=== PATIENT | male | born 1955 | race Caucasian/White ===

== ENCOUNTER 2016-06-25 11:29 | Day surgery (SDC) | payer MEDICARE, MEDICAID ==
[~2016-06-25] VITALS: Ht 190.5 cm; Wt 117.9 kg
[~2016-06-25 11:29] MED LIST: ALLO100 PO; CARD180C5 PO; CARV12.5 PO; CELE20TA PO; COUM1TAB PO; DIFL100T PO; FURO1TAB60 PO; LISI10TA3 PO; MELO-1 PO; METO100T PO; NITR0.4S SL; QUET1TAB7 PO; SERO100T PO
[2016-06-25 12:30] VITALS: BP 161/105; RESP 18; TEMP 98.2
[2016-06-25] MEDS ORDERED: DO NOT GIVE AM GLUCOPHAGE, GLUCOPHAGE XR, GLIPIZIDE, GLYBURIDE OR AVANDAMET XX PRN (12:30)
[2016-06-25] MEDS ORDERED: SODIUM BICARBONATE IV SCH ×2 (12:30)
[2016-06-25] MEDS ORDERED: SODIUM CHLOR 0.9% 1000 ML INJ 1,000 ML IV SCH (12:30)
[2016-06-25] MEDS ORDERED: DEXTROSE 5% IV SCH ×2 (12:30)
[2016-06-25] MEDS ORDERED: WATE IV SCH ×2 (12:30)
[2016-06-25 12:37] LABS: AUTOMATED NEUTROPHIL # 5.9 TH/MM3 (1.8-7.7); BASOPHIL % 0.4 % (0.0-2.0); EOSINOPHIL # 0.3 TH/MM3 (0-0.4); EOSINOPHIL % 3.6 % (0.0-4.0); HEMATOCRIT 32.6 % (39.0-51.0); MEAN CELL VOLUME 88.6 FL (80.0-100.0); MEAN CORPUSCULAR HGB CONC 33.9 % (32.0-36.0); MONO % 12.5 % (0.0-8.0); NEUT % 71.5 % (16.0-70.0); PLATELET COUNT 117 TH/MM3 (150-450); RED BLOOD COUNT 3.68 MIL/MM3 (4.50-5.90); RED CELL DISTRIBUTION WIDTH 25.2 % (11.6-17.2); WHITE BLOOD COUNT 8.2 TH/MM3 (4.0-11.0)
[2016-06-25 12:40] LABS: HEMO FLAGS AUTO DIFF
[2016-06-25 12:48] LABS: APTT (PATIENT) 34.1 SEC (24.3-30.1); INTERNATIONAL NORMALIZED RATIO 1.3 RATIO
[2016-06-25 12:52] LABS: BICARBONATE 25.7 MEQ/L (21.0-32.0); POTASSIUM 5.4 MEQ/L (3.5-5.1)
[2016-06-25 13:09] LABS: OVALOCYTES 1+ (NORMAL); PLATELET ESTIMATE SMEAR LOW (NORMAL); PLATELET MORPHOLOGY NORMAL (NORMAL); SCAN/DIFF AUTO DIFF CONFIRMED; TEARDROP RBCS 1+ (NORMAL)
[2016-06-25 13:10] LABS: KERATOCYTES OCC (NORMAL)
[2016-06-25] MEDS ORDERED: IOHEXOL 350 MG/ML 50 ML BTL (for Cath Lab) OTHER ONE (15:05)
[2016-06-25] MEDS ORDERED: MIDAZOLAM HCL 5 MG/5 ML VIAL ONE (15:20)
[2016-06-25] MEDS ORDERED: HEPARIN-NS/PF INJ 500 ML ONE (15:20)
[2016-06-25] MEDS ORDERED: HEPARIN SODIUM - IV 10,000 UNITS/10 ML VIAL ONE (15:20)
[2016-06-25] MEDS ORDERED: METOCLOPRAMIDE HCL 10 MG/2 ML VIAL IVS PRN (16:30)
[2016-06-25] MEDS ORDERED: oxyCODONE/ACETAMINOPHEN 5 MG/325 MG TAB PO PRN ×2 (16:30)
[2016-06-25] MEDS ORDERED: LIDOCAINE HCL 1% 50 ML VIAL INFIL PRN (16:30)
[2016-06-25] MEDS ORDERED: ENALAPRILAT 1.25 MG/ML VIAL IV PRN (16:30)
[2016-06-25] MEDS ORDERED: LORazepam 2 MG/ML VIAL IVP PRN (16:30)
[2016-06-25] MEDS ORDERED: SODIUM NITROPRUSSIDE 50 MG/250 ML D5W IV SCH ×2 (16:30)
[2016-06-25] MEDS ORDERED: cloNIDine HCL 0.1 MG TAB PO PRN (16:30)
[2016-06-25] MEDS ORDERED: HOLD GLUCOPHAGE, GLUCOPHAGE XR, AND AVANDAMET XX PRN (16:30)
[2016-06-25] MEDS ORDERED: POTASSIUM CHLORIDE 20 MEQ CONTROLLED RELEASE TAB PO PRN (16:30)
[2016-06-25] MEDS ORDERED: ATROPINE SULFATE 1 MG/ML VIAL IV PUSH PRN (16:30)
[2016-06-25] MEDS ORDERED: LABETALOL HCL 100 MG/20 ML VIAL IVP PRN (16:30)
[2016-06-25] MEDS ORDERED: ONDANSETRON HCL 4 MG/2 ML VIAL IV PRN (16:30)
[2016-06-25] MEDS ORDERED: SODIUM CHLOR 0.9% 250 ML IV PRN (16:30)
[2016-06-25] MEDS ORDERED: DILTIAZEM-CD 180 MG CAP ER PO STA (16:52)
--- NOTE | 2016-06-26 08:15 | MA ---
cc: [facility] DATE: 06/25/2016 PREOPERATIVE DIAGNOSIS End-stage renal disease. POSTOPERATIVE DIAGNOSIS End-stage renal disease PROCEDURE Left upper extremity fistulogram. ANESTHESIA Moderate sedation with approximately 3 cc of 1% lidocaine. DETAILS OF PROCEDURE The patient's left upper extremity was prepped and draped in a sterile fashion. I got access to the left cephalic vein using duplex ultrasound. The patient had a high BMI so we used ultrasound to help guide the needle in the appropriate location, although there was a thrill noted underneath the skin just above the antecubital fossa. I used a 21-gauge needle over a non-stranded wire and exchanged for a 4-Romanian micropuncture catheter. Then I shot a fistulogram. My findings were that the inflow arterial venous anastomosis was widely patent. The outflow cephalic vein was patent with no significant stenosis. There were some large collaterals. One was particularly large just a few centimeters after the takeoff of my anastomosis, appeared to be stealing some blood flow from the AV fistula. The axilla and subclavian veins as well as the left innominate were widely patent. At the end of the procedure we removed the catheter from the left arm and applied pressure over the catheter site. The patient tolerated the procedure well. DO NEEMA Vaz/VIVIANE /4:00 PM /7:[address] [facility]
[2016-06-26] MEDS ORDERED: DILTIAZEM-CD 180 MG CAP ER PO SCH (09:00)
[2016-06-26] MEDS ORDERED: ASPIRIN EC 81 MG TABEC PO SCH (09:00)
== END 2016-06-25 17:16 | disposition home or self-care (01) ==
LOC: HDOC 11:29 → HDIC 11:30 → HDOC 17:16
PROVIDERS: ATTEND Surgery
DX: I13.2 Hypertensive heart and chronic kidney disease with heart failure and with stage 5 chronic kidney disease, or end stage renal disease (principal); N18.5 Chronic kidney disease, stage 5; I50.9 Heart failure, unspecified
CPT/HCPCS: 75820; 80048; 85025; 85610; 85730; J1644; J2250; J3010; Q9967

== ENCOUNTER 2016-07-02 07:42 | Day surgery (SDC) | payer MEDICARE, MEDICAID ==
[~2016-07-02] VITALS: Ht 190.5 cm; Wt 120.0 kg
[~2016-07-02 07:42] MED LIST changes: +BUPIVACAINE/EPINEPHRINE 0.25% PF 10 ML VIAL ONE; +GELFOAM SIZE 100 ONE; +HEPARIN SODIUM - IV 10,000 UNITS/10 ML VIAL ONE; +HEPARIN SODIUM - SQ 10,000 UNITS/ML VIAL ONE; -MELO-1 PO; -METO100T PO; -NITR0.4S SL; +PROTAMINE SULFATE 50 MG/5 ML VIAL ONE; -QUET1TAB7 PO; -SERO100T PO; +THROMBIN (TOPICAL) 5,000 UNIT VIAL ONE; +VANCOMYCIN HCL 1000 MG VIAL ONE
[2016-07-02] MEDS ORDERED: METOPROLOL TARTRATE 25 MG TAB PO PRN (09:30)
[2016-07-02] MEDS ORDERED: LACTATED RINGER'S 1000 ML IV SCH (09:30)
[2016-07-02] MEDS ORDERED: INSULIN HUMAN REGULAR 1,000 UNITS/10 ML VIAL SQ PRN (09:30)
[2016-07-02] MEDS ORDERED: SODIUM CHLORID 0.9% 500 ML IV SCH (09:30)
[2016-07-02] MEDS ORDERED: COLA100C3 PO (10:03)
[2016-07-02] MEDS ORDERED: MAGN1TAB14 PO (10:03)
[2016-07-02] MEDS ORDERED: RENATAB5 PO (10:03)
[2016-07-02] MEDS ORDERED: NITR1SUB3 SL (10:03)
[2016-07-02] MEDS ORDERED: WARF-58 PO (10:03)
[2016-07-02] MEDS ORDERED: TRAM50TA PO (10:03)
[2016-07-02] MEDS ORDERED: SERO100T PO (10:03)
[2016-07-02] MEDS ORDERED: PERC7.5T13 PO (10:03)
[2016-07-02 10:35] LABS: INTERNATIONAL NORMALIZED RATIO 2.3 RATIO; PROTHROMBIN TIME - PATIENT 26.2 SEC (9.8-11.6)
[2016-07-02 10:45] LABS: BICARBONATE 24.7 MEQ/L (21.0-32.0); POTASSIUM 4.5 MEQ/L (3.5-5.1)
[2016-07-02] MEDS ORDERED: BUPIVACAINE/EPINEPHRINE 0.25% PF 10 ML VIAL ONE (10:45)
[2016-07-02 11:16] VITALS: BP 144/92; PULSE 118; RESP 16; O2SAT 93
== END 2016-07-02 11:45 ==
LOC: HCVO 07:42 → HSDC 11:45
PROVIDERS: ATTEND Surgery
DX: Z53.09 Procedure and treatment not carried out because of other contraindication (principal); I13.2 Hypertensive heart and chronic kidney disease with heart failure and with stage 5 chronic kidney disease, or end stage renal disease; N18.5 Chronic kidney disease, stage 5; I50.9 Heart failure, unspecified
CPT/HCPCS: 80048; 85610; G0463; 99211; J1644; J2720; J3370

== ENCOUNTER → 2016-07-10 | Day surgery (SDC) | payer MEDICARE, MEDICAID ==
[~2016-07-10] MED LIST changes: +ACETAMINOPHEN/HYDROcodone 325 MG/5 MG TAB ONE; +BUPIVACAINE HCL PF 0.5% 30 ML VIAL NB ONE; -BUPIVACAINE/EPINEPHRINE 0.25% PF 10 ML VIAL ONE; +BUPIVACAINE/EPINEPHRINE 0.25% PF 30 ML VIAL ONE; -CARD180C5 PO; +COLA100C3 PO; -COUM1TAB PO; -DIFL100T PO; +DO NOT ADM ANY ANTICOAGULANT DRUGS XX PRN; +INSULIN HUMAN REGULAR 1,000 UNITS/10 ML VIAL SQ PRN; +LACTATED RINGER'S 1000 ML IV SCH; -LISI10TA3 PO; +MAGN1TAB14 PO; +MAGNESIUM SULFATE 1 GM/100 ML IV PRN; +METOPROLOL TARTRATE 25 MG TAB PO PRN; +MIDAZOLAM HCL 2 MG/2 ML VIAL ONE; +MORPHINE SULFATE 4 MG/ML INJ IV PRN; +NITR1SUB3 SL; +ONDANSETRON HCL 4 MG/2 ML VIAL IV PUSH PRN; +PERC7.5T13 PO; +POTASSIUM CHLOR 20 MEQ 100 ML x 2 BAGS IV PRN; +POTASSIUM CHLOR 20 MEQ/100 ML x 1 BAG IV PRN; +POTASSIUM PHOSPHATE 21 MMOL/NS 250 ML IV PRN; +PROPOFOL 200 MG/20 ML AMP IV ONE; -PROTAMINE SULFATE 50 MG/5 ML VIAL ONE; +RENATAB5 PO; +SERO100T PO; +SODIUM CHLORID 0.9% 500 ML INJ 500 ML IV ONE; +SODIUM CHLORID 0.9% 500 ML IV SCH; +SODIUM CHLORIDE FLUSH BID IVF SCH; +SODIUM CHLORIDE FLUSH PRN IVF; +TRAM50TA PO; +WARF-58 PO; +fentaNYL CITRATE 250 MCG/5 ML AMP ONE
[2016-07-10 08:32] VITALS: BP 155/86; PULSE 106; RESP 20; TEMP 97.6; O2SAT 97
--- NOTE | 2016-07-10 09:37 | RADRPT ---
EXAM DATE/TIME: 07/10/2016 08:52 [place] COMPARISON: CHEST SINGLE AP, May 03, 2016, 12:19. INDICATIONS : Ptre-op left arm. Evaluate for pneumonia, pneumothorax, and communicable diseases. MEDICAL HISTORY : Hypertension. Renal failure, chronic SURGICAL HISTORY : Tonsillectomy. AV fistula repair ENCOUNTER: Initial ACUITY: 1 day PAIN SCORE: 0/10 LOCATION: Bilateral chest FINDINGS: The previously noted bibasilar infiltrates on prior exam have improved. There is mild linear atelecta sis in the right middle lobe. Otherwise, the rest of the lung smith are grossly clear. No new pulmon bubba infiltrates are demonstrated. The heart size is enlarged but stable. There is a right central adry e in place. There is no pneumothorax. No evidence of pleural effusions. The bony structures are stabl e. CONCLUSION: Mild linear right middle lobe atelectasis. Otherwise no other new or acute pulmonary infiltrates. Ronald Marinelli MD on July 10, 2016 at 9:34 Board Certified Radiologist. This report was verified electronically.
[2016-07-10 09:45] LABS: INTERNATIONAL NORMALIZED RATIO 1.2 RATIO; PROTHROMBIN TIME - PATIENT 13.3 SEC (9.8-11.6)
[2016-07-10 10:33] LABS: BICARBONATE 26.9 MEQ/L (21.0-32.0); POTASSIUM 4.9 MEQ/L (3.5-5.1)
[2016-07-10 15:20] VITALS: BP 110/77; PULSE 95; RESP 18; TEMP 97.6; O2SAT 96
--- NOTE | 2016-07-13 14:45 | MP ---
cc: TANIA BAL DATE OF SURGERY: 07/10/2016 PREOPERATIVE DIAGNOSIS End-stage renal disease with history of a brachiocephalic fistula with subcutaneous fat and multiple branches needing superficialization. POSTOPERATIVE DIAGNOSIS End-stage renal disease with history of a brachiocephalic fistula with subcutaneous fat and multiple branches needing superficialization. PROCEDURE Transposition of left upper extremity cephalic vein. ANESTHESIA MAC and regional nerve block with a supraclavicular nerve block of the left upper extremity. Everything was left upper extremity. There was also left upper extremity brachiocephalic transposition. IV FLUIDS 800 cc crystalloid. URINE OUTPUT Not calculated. ESTIMATED BLOOD LOSS Minimal. DISPOSITION To PACU. DETAILS OF PROCEDURE The patient's left upper extremity was prepped and draped in a sterile fashion after getting out one gram of IV vancomycin. I made a longitudinal incision along the length of the left upper extremity overlying the biceps. I used a scalpel and electrocautery. I dissected down to the level of the cephalic vein. I used 2-0 and 4-0 silk ties as needed as well as small clips to divide side branches. I mobilized the cephalic vein and made sure I used the electrocautery as needed for hemostasis as well as Surgicel and fibrillin SNoW. Once I mobilized there appeared to be enough redundancy to tunnel it somewhat medially. I used a Elzbieta tunneler and tunneled medially through the subcutaneous tissue then heparinized the patient with 3000 units of heparin. I then just distal to my anastomosis used a pediatric profunda clamp in order to control the vessel. I did shawnee the vessel before this point with a blue marker along the anterior border. Once I mobilized it and divided it I made sure I was able to irrigate the area. Then I made sure that the vessel was not twisted and placed it within the tunneler and pulled the tunneler through. Once I pulled the vein through the tunnel it should be noted that I did irrigate appropriately. I then performed anastomosis of the two spatulated ends with the back wall of the proximal segment and longer than the front wall of the distal segment. I used a 5-0 Prolene in continuous running fashion in order to perform my anastomosis. I did use two 6-0 Prolene correction stitches for some periadventitial tissue that was controlled with hemostasis. There was a nice thrill in the vessel that could be heard underneath the skin and distally to the tunnel. We made sure there was hemostasis and approximated the skin with multiple interrupted 2-0 Vicryl absorbable sutures, then interrupted 3-0 Vicryl absorbable sutures with a 4-0 Monocryl stitch run across the length of the incision. The incision was extended from just above the antecubital fossa almost to the axilla. Dermabond glue was used at the very end and we used a Kerlix dressing as well as a sling. The patient tolerated the procedure well. DO NEEMA Vaz/VIVIANE /1:05 PM /2:25 PM
== END | disposition home or self-care (01) ==
LOC: HCVO 08:26
PROVIDERS: ATTEND Surgery
DX: N18.6 End stage renal disease (principal); I12.0 Hypertensive chronic kidney disease with stage 5 chronic kidney disease or end stage renal disease; I50.9 Heart failure, unspecified; E78.5 Hyperlipidemia, unspecified
CPT/HCPCS: 01844; 36818; 64415; 71010; 76937; 80048; 85610; 86850; 86900; 86901; J1644; J2250; J3010; J3370; J7040

== ENCOUNTER 2016-12-18 18:55 | Emergency (ER) | payer MEDICAID, MEDICARE ==
[~2016-12-18] VITALS: Ht 190.5 cm; Wt 120.0 kg
[~2016-12-18 18:55] MED LIST changes: -ACETAMINOPHEN/HYDROcodone 325 MG/5 MG TAB ONE; -BUPIVACAINE HCL PF 0.5% 30 ML VIAL NB ONE; -BUPIVACAINE/EPINEPHRINE 0.25% PF 30 ML VIAL ONE; -DO NOT ADM ANY ANTICOAGULANT DRUGS XX PRN; -GELFOAM SIZE 100 ONE; -HEPARIN SODIUM - IV 10,000 UNITS/10 ML VIAL ONE; -HEPARIN SODIUM - SQ 10,000 UNITS/ML VIAL ONE; -INSULIN HUMAN REGULAR 1,000 UNITS/10 ML VIAL SQ PRN; -LACTATED RINGER'S 1000 ML IV SCH; -MAGNESIUM SULFATE 1 GM/100 ML IV PRN; -METOPROLOL TARTRATE 25 MG TAB PO PRN; -MIDAZOLAM HCL 2 MG/2 ML VIAL ONE; -MORPHINE SULFATE 4 MG/ML INJ IV PRN; -ONDANSETRON HCL 4 MG/2 ML VIAL IV PUSH PRN; -POTASSIUM CHLOR 20 MEQ 100 ML x 2 BAGS IV PRN; -POTASSIUM CHLOR 20 MEQ/100 ML x 1 BAG IV PRN; -POTASSIUM PHOSPHATE 21 MMOL/NS 250 ML IV PRN; -PROPOFOL 200 MG/20 ML AMP IV ONE; -SERO100T PO; -SODIUM CHLORID 0.9% 500 ML INJ 500 ML IV ONE; -SODIUM CHLORID 0.9% 500 ML IV SCH; -SODIUM CHLORIDE FLUSH BID IVF SCH; -SODIUM CHLORIDE FLUSH PRN IVF; -THROMBIN (TOPICAL) 5,000 UNIT VIAL ONE; -VANCOMYCIN HCL 1000 MG VIAL ONE; -fentaNYL CITRATE 250 MCG/5 ML AMP ONE
[2016-12-18 19:05] VITALS: BP 129/78; PULSE 70; RESP 18; TEMP 98.3
[2016-12-18] MEDS ORDERED: GELATIN 12 MM/7 MM FOAM TOPICAL ONE (19:30)
--- NOTE | 2016-12-18 19:35 | PD ---
HPI Chief Complaint: Skin Problem Time Seen by Provider: 19:21 Travel History International Travel<30 days: No Contact w/Intl Traveler<30days: No History of Present Illness HPI This is a 61-year-old male who presents to the emergency department with bleeding from his AV fistula. He had dialysis earlier today. It started to bleed about an hour ago. He denies any lightheadedness or dizziness. He bled through about 2 washcloths at home. He recently had a fistula revised about a month ago. PFSH Past Medical History Hx Anticoagulant Therapy: No Arthritis: Yes (knees, ankles; gout) Cancer: No Cardiovascular Problems: Yes (HTN, CHOL) High Cholesterol: Yes Chest Pain: No Congestive Heart Failure: No (new diagnosis 03-28-16) COPD: No Diabetes: No Endocrine: Yes Gastrointestinal Disorders: No Glaucoma: No Genitourinary: Yes (protein in urine long time; KIDNEY STONES) Hepatitis: No Hiatal Hernia: No Hypertension: Yes Immune Disorder: No Musculoskeletal: Yes (DIFFICULTY WITH AMBULATION) Neurologic: Yes (DIZZINESS) Respiratory: No Integumentary: No Sleep Apnea: Yes Thyroid Disease: No Past Surgical History Abdominal Surgery: No AICD: No Cardiac Surgery: No (heart cath) Ear Surgery: No Endocrine Surgery: No Eye Surgery: Yes (CATARACT) Genitourinary Surgery: No Gynecologic Surgery: No Joint Replacement: No Oral Surgery: Yes (tonsils) Pacemaker: No Thoracic Surgery: No Social History Alcohol Use: No Tobacco Use: No Substance Use: No Allergies-Medications (Allergen,Severity, Reaction): Coded Allergies: No Known Allergies (Unverified , 07/10/16) Reported Meds & Prescriptions Reported Meds & Active Scripts Active Lasix (Furosemide) 40 Mg Tab 40 Mg PO DAILY Zyloprim (Allopurinol) 100 Mg Tab 100 Mg PO DAILY Reported Metoprolol Tartrate 100 Mg Tab 100 Mg PO BID Warfarin 3 Mg Tab 3 Mg PO HS Review of Systems Except as stated in HPI: all other systems reviewed are Neg Physical Exam Narrative GENERAL:Well appearing, no acute distress SKIN: Focused skin assessment warm and dry. HEAD: Atraumatic. Normocephalic. EYES: Pupils equal and round. No injection or drainage. ENT: Moist mucous membranes NECK: Trachea midline. CARDIOVASCULAR: brisk oozing from the left fistula with a palpable thrill. RESPIRATORY: Clear to auscultation. Breath sounds equal bilaterally. GASTROINTESTINAL: Abdomen soft, non-tender, nondistended. MUSCULOSKELETAL: No obvious deformities. NEUROLOGICAL: Awake and alert. No obvious cranial nerve deficits. Moving all extremities. PSYCHIATRIC: Appropriate mood and affect; insight and judgment normal. Data Data Last Documented VS Vital Signs Date Time Temp Pulse Resp B/P Pulse Ox O2 Delivery O2 Flow Rate FiO2 12/18/16 19:57 114 20 12/18/16 19:38 129/73 98 12/18/16 19:05 98.3 Orders Gelatin 12 Mm/7 Mm Top (Gelfoam 12 Mm/7 (12/18/16 19:30) Cbc No Diff, Includes Plts (12/18/16 20:19) Prothrombin Time / Inr (Pt) (12/18/16 20:19) Labs Laboratory Tests Test 12/18/16 20:35 White Blood Count 8.4 TH/MM3 Red Blood Count 4.29 MIL/MM3 Hemoglobin 12.3 GM/DL Hematocrit 36.8 % Mean Corpuscular Volume 85.9 FL Mean Corpuscular Hemoglobin 28.6 PG Mean Corpuscular Hemoglobin 33.4 % Concent Red Cell Distribution Width 17.4 % Platelet Count 159 TH/MM3 Mean Platelet Volume 8.7 FL Prothrombin Time 68.3 SEC Prothromb Time International 5.7 RATIO Ratio MDM Medical Decision Making Medical Screen Exam Complete: Yes Emergency Medical Condition: Yes Interpretation(s) Afebrile mild tachycardia Hemoglobin is 12.3 INR is 5.7 Differential Diagnosis Bleeding AV fistula, coagulopathy, supratherapeutic INR Narrative Course This is a 61-year-old male who has a history of end-stage renal disease who presented to the emergency department with an oozing AV fistula. Gelfoam was placed on the wound and pressure was applied. He was observed for 2 hours. He initially had some rebleeding but after rewrapping the patient had no significant bleeding. INR was checked and it was 5.7. I discussed with the patient the risks versus benefits of reversing his anticoagulation. We both agreed that we were concerned about rebleeding overnight in we decided to administer oral vitamin K. Patient will resume his Coumadin on Saturday and follow up with his primary care physician. Diagnosis Primary Impression: Hemorrhage of arteriovenous fistula Qualified Code: T82.838A - Hemorrhage of arteriovenous fistula, initial encounter Patient Instructions: General Instructions Additional Instructions: Check your bandage every hour for rebleeding. Hold your warfarin tomorrow and resume it on Saturday. Return to the emergency department if he started to have significant bleeding again. Follow-up with your primary care physician on Saturday. Med/Other Pt SpecificInfo: Existing Med Changed Disposition: 01 DISCHARGE HOME Condition: Stable Katerine Arzate MD Dec 18, 2016 19:35
[2016-12-18 19:38] VITALS: BP 129/73; PULSE 117; RESP 20; O2SAT 98
[2016-12-18] MEDS ORDERED: METO100T PO (20:07)
[2016-12-18 20:46] LABS: HEMATOCRIT 36.8 % (39.0-51.0); MEAN CELL VOLUME 85.9 FL (80.0-100.0); MEAN CORPUSCULAR HEMOGLOBIN 28.6 PG (27.0-34.0); MEAN CORPUSCULAR HGB CONC 33.4 % (32.0-36.0); PLATELET COUNT 159 TH/MM3 (150-450); RED BLOOD COUNT 4.29 MIL/MM3 (4.50-5.90); RED CELL DISTRIBUTION WIDTH 17.4 % (11.6-17.2); REVIEW FLAG FINAL; WHITE BLOOD COUNT 8.4 TH/MM3 (4.0-11.0)
[2016-12-18 20:55] LABS: INTERNATIONAL NORMALIZED RATIO 5.7 RATIO; PROTHROMBIN TIME - PATIENT 68.3 SEC (9.8-11.6)
[2016-12-18] MEDS ORDERED: PHYTONADIONE 5 MG TAB PO ONE (21:15)
[2016-12-18 21:42] VITALS: BP 135/80
== END 2016-12-18 21:46 | disposition home or self-care (01) ==
LOC: PHED 18:55
DX: T82.838A Hemorrhage due to vascular prosthetic devices, implants and grafts, initial encounter (principal); R00.0 Tachycardia, unspecified; I10 Essential (primary) hypertension
CPT/HCPCS: 85027; 85610; 99283

== ENCOUNTER 2017-06-16 17:36 | Inpatient (IN) | payer MEDICARE ==
[~2017-06-16] VITALS: Ht 190.5 cm; Wt 121.0 kg
[~2017-06-16 17:36] MED LIST changes: -CARV12.5 PO; -CELE20TA PO; -COLA100C3 PO; -MAGN1TAB14 PO; +METO100T PO; -NITR1SUB3 SL; -PERC7.5T13 PO; -RENATAB5 PO; -TRAM50TA PO
[2017-06-16 17:42] VITALS: BP 141/75; PULSE 95; RESP 20; TEMP 98.1; O2SAT 94
[2017-06-16] MEDS ORDERED: ONDANSETRON HCL 4 MG/2 ML VIAL IV ONE (19:15)
[2017-06-16 19:28] VITALS: BP 133/78; PULSE 88; RESP 16; TEMP 98.2; O2SAT 96
[2017-06-16 19:38] LABS: AUTOMATED NEUTROPHIL # 7.5 TH/MM3 (1.8-7.7); BASOPHIL % 0.4 % (0.0-2.0); EOSINOPHIL # 0.1 TH/MM3 (0-0.4); EOSINOPHIL % 0.9 % (0.0-4.0); HEMOGLOBIN 11.8 GM/DL (13.0-17.0); LYMPH % 14.8 % (9.0-44.0); LYMPHOCYTE # 1.5 TH/MM3 (1.0-4.8); MEAN CELL VOLUME 92.3 FL (80.0-100.0); MEAN CORPUSCULAR HEMOGLOBIN 28.7 PG (27.0-34.0); MEAN CORPUSCULAR HGB CONC 31.1 % (32.0-36.0); MONO % 7.9 % (0.0-8.0); MONOCYTE # 0.8 TH/MM3 (0-0.9); PLATELET COUNT 169 TH/MM3 (150-450); RED BLOOD COUNT 4.11 MIL/MM3 (4.50-5.90); WHITE BLOOD COUNT 9.9 TH/MM3 (4.0-11.0)
[2017-06-16 20:01] LABS: ALBUMIN 3.4 GM/DL (3.4-5.0); BICARBONATE 16.4 MEQ/L (21.0-32.0); MAGNESIUM 3.1 MG/DL (1.5-2.5); TOTAL BILIRUBIN ADULT 0.5 MG/DL (0.2-1.0); TOTAL PROTEIN 7.9 GM/DL (6.4-8.2)
[2017-06-16 20:07] LABS: CALCIUM 6.1 MG/DL (8.5-10.1); CALCIUM-PROTEIN CORRECTED 5.8 MG/DL (8.5-10.1)
[2017-06-16] MEDS ORDERED: DEXTROSE 50% IN WATER 50 ML VIAL(D50) IV PUSH ONE (20:15)
[2017-06-16] MEDS ORDERED: CALCIUM GLUCONATE 10% 1 GM/10 ML VIAL SLOW IVP ONE (20:15)
[2017-06-16] MEDS ORDERED: INSULIN HUMAN REGULAR 1,000 UNITS/10 ML VIAL IV PUSH ONE (20:15)
[2017-06-16] MEDS ORDERED: RESP: ALBUTEROL CONC 2.5 MG/0.5 ML NEB INH ONE (20:15)
[2017-06-16] MEDS ORDERED: SODIUM CHLOR 0.9% 1000 ML INJ 1,000 ML IV PRN (20:37)
[2017-06-16] MEDS ORDERED: SODIUM CHLOR 0.9% 1000 ML INJ 1,000 ML OTHER PRN ×2 (20:37)
[2017-06-16] MEDS ORDERED: FURO40TA PO (20:39)
[2017-06-16] MEDS ORDERED: CALC667T PO (20:39)
[2017-06-16 20:40] VITALS: O2SAT 96
[2017-06-16] MEDS ORDERED: ONDANSETRON HCL 4 MG/2 ML VIAL IV PUSH PRN ×2 (20:45→21:30)
[2017-06-16] MEDS ORDERED: GELATIN 12 MM/7 MM FOAM TOP PRN (20:45)
[2017-06-16] MEDS ORDERED: NITROGLYCERIN 0.4 MG SL 25 TABS/BTL SL PRN (20:45)
[2017-06-16] MEDS ORDERED: SODIUM CHLORIDE 0.9% FLUSH 10 ML FLUSH IV FLUSH PRN ×2 (20:45→21:30)
[2017-06-16] MEDS ORDERED: HEPARIN SODIUM - IV 10,000 UNITS/10 ML VIAL IV FLUSH PRN (20:45)
[2017-06-16] MEDS ORDERED: ACETAMINOPHEN 325 MG TAB PO PRN ×2 (20:45→21:30)
[2017-06-16] MEDS ORDERED: cloNIDine HCL 0.1 MG TAB PO PRN (20:45)
[2017-06-16] MEDS ORDERED: MANNITOL 12.5 GM/50 ML VIAL IV PRN (20:45)
[2017-06-16] MEDS ORDERED: diphenhydrAMINE HCL 25 MG CAP PO PRN (20:45)
[2017-06-16 20:56] VITALS: BP 123/73; PULSE 93; RESP 18; O2SAT 95
[2017-06-16] MEDS ORDERED: BISACODYL 10 MG SUPP RECTAL PRN (21:30)
[2017-06-16] MEDS ORDERED: MISCELLANEOUS NURSING INFORMATION XX SCH (21:30)
[2017-06-16] MEDS ORDERED: SENNOSIDES 8.6 MG TAB PO PRN (21:30)
[2017-06-16] MEDS ORDERED: LACTULOSE SYRUP 20 GM/30 ML CUP PO PRN (21:30)
[2017-06-16] MEDS ORDERED: ZOLPIDEM TARTRATE 5 MG TAB PO PRN (21:30)
[2017-06-16] MEDS ORDERED: MAGNESIUM HYDROXIDE SUSP 30 ML CUP PO PRN (21:30)
[2017-06-16] MEDS ORDERED: CHLORHEXIDINE GLUCONATE 2 % 1 PACK (2 CLOTHS) TOP PRN (21:30)
--- NOTE | 2017-06-16 21:55 | PD ---
HPI Chief Complaint: General Weakness Time Seen by Provider: 18:10 Travel History International Travel<30 days: No Contact w/Intl Traveler<30days: No Traveled to known affect area: No History of Present Illness HPI This is a 62-year-old male who is a dialysis patient who presents to the emergency department with generalized weakness, constant, severe, not able to get out of bed today without his son's help. He says that yesterday he was supposed to have dialysis but when he went to his dialysis center they were having problems with her tubing and they were unable to dialyze him. They told him to limit his fluids and to come back on Saturday. He was feeling terrible this morning so he came to the emergency department. He follows with Dr. Batres. [facility] Past Medical History Hx Anticoagulant Therapy: Yes (WARFARIN) Arthritis: Yes (REPORTS "EVERYWHERE") Atrial Fibrillation: Yes Cancer: No Cardiac Catheterization: Yes Cardiovascular Problems: Yes High Cholesterol: Yes Chest Pain: No Congestive Heart Failure: Yes COPD: No Diabetes: No Dialysis: Yes (on sat, and sat) Endocrine: Yes Gastrointestinal Disorders: No Glaucoma: No Genitourinary: Yes Hepatitis: No Hiatal Hernia: No Hypertension: Yes Immune Disorder: No Musculoskeletal: Yes (hx of DIFFICULTY WITH AMBULATION, WALKS WITH WALKER) Neurologic: Yes Respiratory: No Integumentary: No Sleep Apnea: Yes Thyroid Disease: No Tetanus Vaccination: < 5 Years Influenza Vaccination: Yes Past Surgical History Abdominal Surgery: No AICD: No Arteriovenous Shunt: Yes (pt has a left upper arm fistula) Ear Surgery: No Endocrine Surgery: No Eye Surgery: Yes (CATARACT-RIGHT) Genitourinary Surgery: No Gynecologic Surgery: No Joint Replacement: No Oral Surgery: Yes (tonsils) Pacemaker: No Thoracic Surgery: No Tonsillectomy: Yes Other Surgery: Yes (left upper arm fisula placement for dialysis) Social History Alcohol Use: No Tobacco Use: No Substance Use: Yes (states smoked "pot") Allergies-Medications (Allergen,Severity, Reaction): Coded Allergies: No Known Allergies (Unverified Allergy, Unknown, 06/16/17) Reported Meds & Prescriptions Reported Meds & Active Scripts Active Zyloprim (Allopurinol) 100 Mg Tab 100 Mg PO DAILY Reported Calcium Acetate (Phosphate Binder) 667 Mg Tab 3,200 Mg PO TID Furosemide 40 Mg Tab 40 Mg PO BID Metoprolol Tartrate 100 Mg Tab 100 Mg PO BID Warfarin 3 Mg Tab 3 Mg PO HS Review of Systems Except as stated in HPI: all other systems reviewed are Neg Physical Exam Narrative GENERAL: Chronically ill-appearing, dry heaving SKIN: Dry with skin tenting HEAD: Atraumatic. Normocephalic. EYES: Pupils equal and round. No injection or drainage. ENT: Dry mucous membranes NECK: Trachea midline. CARDIOVASCULAR: Regular rate and rhythm. No murmur appreciated. RESPIRATORY: Clear to auscultation. Breath sounds equal bilaterally. GASTROINTESTINAL: Abdomen soft, non-tender, nondistended. MUSCULOSKELETAL: No obvious deformities. NEUROLOGICAL: Awake and alert. No obvious cranial nerve deficits. Moving all extremities. PSYCHIATRIC: Appropriate mood and affect; insight and judgment normal. Data Data Last Documented VS Vital Signs Date Time Temp Pulse Resp B/P (MAP) Pulse Ox O2 Delivery O2 Flow Rate FiO2 06/16/17 20:40 96 21 06/16/17 19:28 98.2 88 16 133/78 (96) Room Air Orders Orders Complete Blood Count With Diff (06/16/17 18:17) Comprehensive Metabolic Panel (06/16/17 18:17) Magnesium (Mg) (06/16/17 18:17) ^ Insert Iv (06/16/17 18:17) Creatine Kinase (Cpk) (06/16/17 18:17) Electrocardiogram (06/16/17 ) Ondansetron Inj (Zofran Inj) (06/16/17 19:15) CKMB (06/16/17 19:00) CKMB% (06/16/17 19:00) Calcium Gluconate Inj (Calcium Gluconate (06/16/17 20:15) Insulin Human Regular Inj (Novolin R Inj (06/16/17 20:15) Dextrose 50% In Arsenio (Vial) Inj (D50w (Vi (06/16/17 20:15) Albuterol Concentrated Neb (Albuterol Co (06/16/17 20:15) Blood Flow Rate (06/16/17 20:37) Dialysate Flow Rate (06/16/17 20:37) Dialyzer (06/16/17 20:37) Concentrate (06/16/17 20:37) Acid Concentrate (06/16/17 20:37) Length Of Dialysis (06/16/17 20:37) Frequency Of Dialysis (06/16/17 20:37) Dialysis Obtain (06/16/17 20:37) Needle Size (06/16/17 20:37) Dialysis Schedule (06/16/17 20:37) Resp Oxygen Yuniel C Titrat 1-4 L (06/16/17 ) Dialysis Weight (06/16/17 20:37) ^ Obtain As Needed (06/16/17 20:37) Sodium Chlor 0.9% 1000 Ml Inj (Ns 1000 M (06/16/17 20:37) Heparin Inj (Heparin Inj) (06/16/17 20:45) Sodium Chlor 0.9% 1000 Ml Inj (Ns 1000 M (06/16/17 20:37) Sodium Chlor 0.9% 1000 Ml Inj (Ns 1000 M (06/16/17 20:37) Mannitol Inj (Mannitol Inj) (06/16/17 20:45) Albumin 25% Inj (Albumin 25% Inj) (06/16/17 20:45) Sodium Chloride 0.9% Flush (Ns Flush) (06/16/17 20:45) Heparin Inj (Heparin Inj) (06/16/17 20:45) Gentamicin (Dialysis) Inj (Gentamicin (D (06/16/17 20:45) Ondansetron Inj (Zofran Inj) (06/16/17 20:45) Acetaminophen (Tylenol) (06/16/17 20:45) Diphenhydramine (Benadryl) (06/16/17 20:45) Nitroglycerin Sl (Nitrostat Sl) (06/16/17 20:45) Clonidine (Catapres) (06/16/17 20:45) Gelatin 12 Mm/7 Mm Top (Gelfoam 12 Mm/7 (06/16/17 20:45) Admit Order (Ed Use Only) (06/16/17 20:49) Consult Nephrology (06/16/17 ) Labs Laboratory Tests Test 06/16/17 19:00 06/16/17 19:15 Blood Urea Nitrogen 136 MG/DL Creatinine 17.00 MG/DL Random Glucose 84 MG/DL Total Protein 7.9 GM/DL Albumin 3.4 GM/DL Calcium Level 6.1 MG/DL Magnesium Level 3.1 MG/DL Alkaline Phosphatase 64 U/L Aspartate Amino Transf (AST/SGOT) 10 U/L Alanine Aminotransferase (ALT/SGPT) 12 U/L Total Bilirubin 0.5 MG/DL Sodium Level 135 MEQ/L Potassium Level 8.2 MEQ/L Chloride Level 97 MEQ/L Carbon Dioxide Level 16.4 MEQ/L Anion Gap 22 MEQ/L Estimat Glomerular Filtration Rate 3 ML/MIN Protein Corrected Calcium 5.8 MG/DL Total Creatine Kinase 892 U/L Creatine Kinase MB 6.8 NG/ML Creatine Kinase MB % 0.8 % White Blood Count 9.9 TH/MM3 Red Blood Count 4.11 MIL/MM3 Hemoglobin 11.8 GM/DL Hematocrit 38.0 % Mean Corpuscular Volume 92.3 FL Mean Corpuscular Hemoglobin 28.7 PG Mean Corpuscular Hemoglobin Concent 31.1 % Red Cell Distribution Width 15.0 % Platelet Count 169 TH/MM3 Mean Platelet Volume 8.0 FL Neutrophils (%) (Auto) 76.0 % Lymphocytes (%) (Auto) 14.8 % Monocytes (%) (Auto) 7.9 % Eosinophils (%) (Auto) 0.9 % Basophils (%) (Auto) 0.4 % Neutrophils # (Auto) 7.5 TH/MM3 Lymphocytes # (Auto) 1.5 TH/MM3 Monocytes # (Auto) 0.8 TH/MM3 Eosinophils # (Auto) 0.1 TH/MM3 Basophils # (Auto) 0.0 TH/MM3 CBC Comment DIFF FINAL Differential Comment MDM Medical Decision Making Medical Screen Exam Complete: Yes Emergency Medical Condition: Yes Interpretation(s) Afebrile, no tachycardia, normotensive No leukocytosis Mild anemia EKG: QRS is 1.3, Q waves in the inferior leads, concerning for hyperkalemia Potassium is 8.2 Bicarbonate is 16 Creatinine is 17 and BUN is 136 Protein corrected calcium is 5.8 Differential Diagnosis Hyperkalemia, hypocalcemia, acidosis, rhabdomyolysis, infection Narrative Course This is a 62-year-old male who presents to the emergency department having missed dialysis yesterday, feeling weak and nauseous. He is ill-appearing and dry heaving in the room. EKG is concerning for early hyperkalemia. Labs demonstrate a potassium of 8.2. In the emergency department he was given calcium gluconate, insulin and D50, and albuterol. I spoke to the director product safety and arranged for emergent dialysis. Patient was transported up to the intensive care unit for dialysis. Critical Care Narrative Aggregate critical care time was 45 minutes. Time to perform other separately billable procedures was not included in the critical care time. My time did not include minutes spent treating any other patients simultaneously or on activities that did not directly contribute to the patient's treatment. The services I provided to this patient were to treat and/or prevent clinically significant deterioration that could result in: Disability, I provided critical care services requiring my management, as noted below: Chart data review, documentation time, medication orders and management, vital sign assessments/reviewing monitor data, ordering and reviewing lab tests, ordering and interpreting/reviewing x-rays and diagnostic studies, care of the patient and discussion of the patient with the admitting physicians. Physician Communication Physician Communication Discussed with Dr. Edgar Diagnosis Primary Impression: Hyperkalemia Admitting Information Admitting Physician Requests: Admit Katerine Arzate MD Jun 16, 2017 21:55
[2017-06-16 22:00] VITALS: BP 118/69; PULSE 94; RESP 38; TEMP 98.2; O2SAT 96
[2017-06-16 23:00] VITALS: BP 117/69; PULSE 90; RESP 24; O2SAT 96
--- NOTE | 2017-06-16 23:28 | PD.CONS ---
HPI Service Nephrology Consult Requested By Dr. Arzate Reason for Consult End-stage renal disease with hyperkalemia Primary Care Physician Jesus Alberto Escamilla MD History of Present Illness Patient is a 62-year-old white male with history of end-stage renal disease, morbid obesity, hypertension, congestive heart failure, he states that he went to his dialysis yesterday but AV fistula was not working and he could not get his dialysis and today he felt weak tired lethargic increasing shortness of breath and came to the emergency and found to have potassium of 8.2, he was also having tingling and his calcium was low, he was given calcium gluconate 2 g , D50, insulin and albuterol. Review of Systems Constitutional: COMPLAINS OF: Fatigue Respiratory: COMPLAINS OF: Shortness of breath Cardiovascular: COMPLAINS OF: Lower Extremity Edema, Orthopnea Musculoskeletal: COMPLAINS OF: Joint pain, Muscle aches Hematologic/lymphatic: COMPLAINS OF: Bruising Psychiatric: COMPLAINS OF: Anxiety, Depression Past Family Social History Allergies: Coded Allergies: No Known Allergies (Unverified Allergy, Unknown, 06/16/17) Past Medical History Congestive heart failure Hypertension End-stage renal disease on dialysis Arthritis/gout Use walker to walk Atrial fibrillation History of C. difficile in 2016 Anemia Secondary hyperparathyroidism Past Surgical History Heart catheterization AV fistula left arm Reported Medications Reported Meds & Active Scripts Active Zyloprim (Allopurinol) 100 Mg Tab 100 Mg PO DAILY Reported Calcium Acetate (Phosphate Binder) 667 Mg Tab 3,200 Mg PO TID Furosemide 40 Mg Tab 40 Mg PO BID Metoprolol Tartrate 100 Mg Tab 100 Mg PO BID Warfarin 3 Mg Tab 3 Mg PO HS Active Ordered Medications Current Medications Medications (Trade) Dose Ordered Sig/Corazon Route Start Time Stop Time Status Last Admin Sodium Chloride 1,000 ml @ 0 mls/hr Q0M PRN OTHER 06/16/17 20:37 (Heparin Inj) 8,000 units UNSCH PRN IV FLUSH 06/16/17 20:45 Sodium Chloride 1,000 ml @ 200 mls/hr Q5H PRN IV 06/16/17 20:37 Sodium Chloride 1,000 ml @ 0 mls/hr Q0M PRN OTHER 06/16/17 20:37 (Mannitol Inj) 12.5 gm UNSCH PRN IV 06/16/17 20:45 Albumin Human 100 ml @ 60 mls/hr UNSCH PRN IV 06/16/17 20:45 (NS Flush) 5 ml UNSCH PRN IV FLUSH 06/16/17 20:45 (Heparin Inj) UNSCH PRN .XX 06/16/17 20:45 (Gentamicin (Dialysis) Inj) 20 mg UNSCH PRN OTHER 06/16/17 20:45 (Zofran Inj) 4 mg UNSCH PRN IV PUSH 06/16/17 20:45 (Tylenol) 650 mg UNSCH PRN PO 06/16/17 20:45 (Benadryl) 25 mg UNSCH PRN PO 06/16/17 20:45 (Nitrostat Sl) 0.4 mg UNSCH PRN SL 06/16/17 20:45 (Catapres) 0.1 mg UNSCH PRN PO 06/16/17 20:45 (Gelfoam 12 Mm/7 Mm Top) 1 foam UNSCH PRN TOP 06/16/17 20:45 (Zyloprim) 100 mg DAILY PO 06/17/17 09:00 (Phoslo) 3,335 mg TID PO 06/17/17 09:00 (Lasix) 40 mg BID PO 06/17/17 09:00 (Lopressor) 100 mg BID PO 06/17/17 09:00 (Coumadin) 3 mg HS PO 06/17/17 21:00 [facility] Pharmacy Profile Note 0 ml @ 0 mls/hr UNSCH OTHER 06/16/17 21:30 (NS Flush) 2 ml UNSCH PRN IV FLUSH 06/16/17 21:30 (NS Flush) 2 ml BID IV FLUSH 06/17/17 09:00 (Tylenol) 650 mg Q6H PRN PO 06/16/17 21:30 (Pepcid) 20 mg Q12HR PO 06/17/17 09:00 (Zofran Inj) 4 mg Q6H PRN IV PUSH 06/16/17 21:30 (Ambien) 5 mg HS PRN PO 06/16/17 21:30 Miscellaneous Information 1 Q361D XX 06/16/17 21:30 (Chlorhexidine 2% Cloth) 3 pack Taper DAILY@04 TOP 06/17/17 04:00 06/13/18 03:59 (Chlorhexidine 2% Cloth) 3 pack UNSCH PRN TOP 06/16/17 21:30 (Dulce-Colace) 1 tab BID PO 06/17/17 09:00 (Milk Of Magnesia Liq) 30 ml Q12H PRN PO 06/16/17 21:30 (Senokot) 17.2 mg Q12H PRN PO 06/16/17 21:30 (Dulcolax Supp) 10 mg DAILY PRN RECTAL 06/16/17 21:30 (Lactulose Liq) 30 ml DAILY PRN PO 06/16/17 21:30 Family History Noncontributory Social History History of smoking and history of marijuana use Physical Exam Vital Signs Vital Signs Date Time Temp Pulse Resp B/P (MAP) Pulse Ox O2 Delivery O2 Flow Rate FiO2 06/16/17 22:00 98.2 94 38 118/69 (85) 96 06/16/17 22:00 94 06/16/17 21:33 92 18 98 06/16/17 21:03 96 18 96 Room Air 06/16/17 20:56 93 18 123/73 (90) 95 Room Air 06/16/17 20:40 96 21 06/16/17 19:28 98.2 88 16 133/78 (96) 96 Room Air 06/16/17 18:14 84 16 97 Room Air 06/16/17 17:42 98.1 95 20 141/75 (97) 94 Physical Exam GENERAL: Well-nourished, well-developed patient. SKIN: Warm and dry. HEAD: Normocephalic. EYES: No scleral icterus. No injection or drainage. NECK: Supple, trachea midline. No JVD or lymphadenopathy. CARDIOVASCULAR: irregularly irregular. RESPIRATORY: Breath sounds diminished at bases with crackles GASTROINTESTINAL: Abdomen soft, non-tender, nondistended. EXTREMITIES: No cyanosis, mild edema. AV fistula left arm NEUROLOGICAL: Awake, alert, and oriented x 3. Non-focal. Laboratory Laboratory Tests Test 06/16/17 19:00 06/16/17 19:15 06/16/17 21:51 Blood Urea Nitrogen 136 Creatinine 17.00 Random Glucose 84 Total Protein 7.9 Albumin 3.4 Calcium Level 6.1 Magnesium Level 3.1 Alkaline Phosphatase 64 Aspartate Amino Transf (AST/SGOT) 10 Alanine Aminotransferase (ALT/SGPT) 12 Total Bilirubin 0.5 Sodium Level 135 Potassium Level 8.2 Chloride Level 97 Carbon Dioxide Level 16.4 Anion Gap 22 Estimat Glomerular Filtration Rate 3 Protein Corrected Calcium 5.8 Total Creatine Kinase 892 Creatine Kinase MB 6.8 Creatine Kinase MB % 0.8 White Blood Count 9.9 Red Blood Count 4.11 Hemoglobin 11.8 Hematocrit 38.0 Mean Corpuscular Volume 92.3 Mean Corpuscular Hemoglobin 28.7 Mean Corpuscular Hemoglobin Concent 31.1 Red Cell Distribution Width 15.0 Platelet Count 169 Mean Platelet Volume 8.0 Neutrophils (%) (Auto) 76.0 Lymphocytes (%) (Auto) 14.8 Monocytes (%) (Auto) 7.9 Eosinophils (%) (Auto) 0.9 Basophils (%) (Auto) 0.4 Neutrophils # (Auto) 7.5 Lymphocytes # (Auto) 1.5 Monocytes # (Auto) 0.8 Eosinophils # (Auto) 0.1 Basophils # (Auto) 0.0 CBC Comment DIFF FINAL Differential Comment Result Diagram: 06/16/17 1915 06/16/17 1900 Imaging Laboratory Tests Test 06/16/17 19:00 06/16/17 19:15 06/16/17 21:51 Blood Urea Nitrogen 136 MG/DL Creatinine 17.00 MG/DL Random Glucose 84 MG/DL Total Protein 7.9 GM/DL Albumin 3.4 GM/DL Calcium Level 6.1 MG/DL Magnesium Level 3.1 MG/DL Alkaline Phosphatase 64 U/L Aspartate Amino Transf (AST/SGOT) 10 U/L Alanine Aminotransferase (ALT/SGPT) 12 U/L Total Bilirubin 0.5 MG/DL Sodium Level 135 MEQ/L Potassium Level 8.2 MEQ/L Chloride Level 97 MEQ/L Carbon Dioxide Level 16.4 MEQ/L Anion Gap 22 MEQ/L Estimat Glomerular Filtration Rate 3 ML/MIN Protein Corrected Calcium 5.8 MG/DL Total Creatine Kinase 892 U/L Creatine Kinase MB 6.8 NG/ML Creatine Kinase MB % 0.8 % White Blood Count 9.9 TH/MM3 Red Blood Count 4.11 MIL/MM3 Hemoglobin 11.8 GM/DL Hematocrit 38.0 % Mean Corpuscular Volume 92.3 FL Mean Corpuscular Hemoglobin 28.7 PG Mean Corpuscular Hemoglobin Concent 31.1 % Red Cell Distribution Width 15.0 % Platelet Count 169 TH/MM3 Mean Platelet Volume 8.0 FL Neutrophils (%) (Auto) 76.0 % Lymphocytes (%) (Auto) 14.8 % Monocytes (%) (Auto) 7.9 % Eosinophils (%) (Auto) 0.9 % Basophils (%) (Auto) 0.4 % Neutrophils # (Auto) 7.5 TH/MM3 Lymphocytes # (Auto) 1.5 TH/MM3 Monocytes # (Auto) 0.8 TH/MM3 Eosinophils # (Auto) 0.1 TH/MM3 Basophils # (Auto) 0.0 TH/MM3 CBC Comment DIFF FINAL Differential Comment Assessment and Plan Problem List: (1) ESRD (end stage renal disease) on dialysis ICD Codes: N18.6 - End stage renal disease; Z99.2 - Dependence on renal dialysis Status: Acute Plan: Patient has AV fistula which is not working attempt was made to do dialysis and it was unsuccessful Plan to place a Vas-Cath next and do dialysis, patient follows with Dr. Batres Patient has life-threatening hyperkalemia he went to Outpatient dialysis center yesterday and dialysis attempt was unsuccessful Continue supportive care Hemodialysis will be arranged to get potassium down emergently Critical care provided along with Dr. Arzate (2) Hyperkalemia ICD Codes: E87.5 - Hyperkalemia Status: Acute Plan: Patient has given treatment as above And now we are attempting to do dialysis after Vas-Cath inserted (3) Congestive heart failure ICD Codes: I50.9 - Heart failure, unspecified Status: Acute Plan: Get fluid off Uri Edgar MD Jun 16, 2017 23:28
[2017-06-16 23:39] LABS: INTERNATIONAL NORMALIZED RATIO 3.3 RATIO; PROTHROMBIN TIME - PATIENT 32.8 SEC (9.8-11.6)
[2017-06-16] MEDS ORDERED: LIDOCAINE HCL 1% 50 ML VIAL ONE (23:44)
[2017-06-16] MEDS ORDERED: LIDOCAINE HCL 1% 20 ML VIAL OTHER SCH (23:45)
[2017-06-17] VITALS (26 sets, daily range): BP systolic 85–135; BP diastolic 56–93; PULSE 76–136; RESP 14–40; TEMP 97.9–99.1; O2SAT 93–97
[2017-06-17] MEDS ORDERED: CALCIUM GLUCONATE INJ 2 GM in SODIUM CHLORIDE 0.9% INJ 100 ML IV SCH (00:30)
[2017-06-17] MEDS ORDERED: RESP: ALBUTEROL 2.5 MG/3 ML NEB (SCH) INH (01:15)
--- NOTE | 2017-06-17 02:12 | RADRPT ---
EXAM DATE/TIME: 06/17/2017 01:43 [place] COMPARISON: CHEST SINGLE AP, July 10, 2016, 8:52. INDICATIONS : Central line placement. MEDICAL HISTORY : Hypertension. Renal failure, chronic. SURGICAL HISTORY : None. ENCOUNTER: Initial ACUITY: 1 day PAIN SCORE: Non-responsive. LOCATION: Bilateral chest FINDINGS: The cardiac silhouette is enlarged in transverse diameter. There is prominence of the central pulmona ry vasculature with indistinct vascular margins compatible with vascular congestion but no evidence o f overt failure. A left sided internal jugular vein catheter is in place without pneumothorax with it s tip in the superior vena cava. CONCLUSION: 1. Cardiomegaly and findings of vascular congestion without overt failure. The findings have worsened when compared with the prior examination. 2. Uncomplicated line placement. No evidence of pneumothorax. Gautam Cantu MD on June 17, 2017 at 2:10 Board Certified Radiologist. This report was verified electronically.
[2017-06-17] MEDS: CHLORHEXIDINE GLUCONATE 2 % 1 PACK (2 CLOTHS) TOP SCH (02:13)
[2017-06-17 02:15] LABS: AUTOMATED NEUTROPHIL # 6.2 TH/MM3 (1.8-7.7); BASOPHIL % 0.5 % (0.0-2.0); EOSINOPHIL % 0.3 % (0.0-4.0); HEMATOCRIT 32.9 % (39.0-51.0); HEMOGLOBIN 10.8 GM/DL (13.0-17.0); LYMPH % 12.8 % (9.0-44.0); MEAN CELL VOLUME 91.5 FL (80.0-100.0); MEAN CORPUSCULAR HEMOGLOBIN 30.1 PG (27.0-34.0); MEAN CORPUSCULAR HGB CONC 32.9 % (32.0-36.0); MEAN PLATELET VOLUME 7.9 FL (7.0-11.0); MONO % 6.9 % (0.0-8.0); MONOCYTE # 0.5 TH/MM3 (0-0.9); NEUT % 79.5 % (16.0-70.0); PLATELET COUNT 145 TH/MM3 (150-450); RED CELL DISTRIBUTION WIDTH 15.2 % (11.6-17.2); WHITE BLOOD COUNT 7.7 TH/MM3 (4.0-11.0)
--- NOTE | 2017-06-17 02:17 | HHI.HP ---
[facility] Service Critical Care Medicine Primary Care Physician Jesus Alberto Escamilla MD Admission Diagnosis hyperkalemia Diagnosis: Travel History International Travel<30 Days: No Contact w/Intl Traveler <30 Da: No Traveled to Known Affected Are: No History of Present Illness 62-year-old male who is a dialysis patient presents with generalized weakness, constant, severe, not able to get out of bed today without his son's help. He says that yesterday he was supposed to have dialysis but when he went to his dialysis center they were having problems with tubing and they were unable to dialyze him. They told him to limit his fluids and to come back on Saturday. He was feeling terrible this morning so he came to the emergency department. He follows with Dr. Batres. He is admitted to ICU at [place]. When dialysis nurse attempted to start HD using his fistula, it was found that his fistula is a dysfunctional. The emergent hemodialysis catheter was placed in the ICU under ultrasound guidance. Review of Systems Constitutional: COMPLAINS OF: Fatigue, Dizziness, Change in appetite, DENIES: Diaphoretic episodes, Fever, Weight gain, Weight loss, Chills, Night Sweats Endocrine: DENIES: Heat/cold intolerance, Polydipsia, Polyuria, Polyphagia Eyes: DENIES: Blurred vision, Diplopia, Eye inflammation, Eye pain, Vision loss , Photosensitivity, Double Vision Ears, nose, mouth, throat: DENIES: Tinnitus, Hearing loss, Vertigo, Nasal discharge, Oral lesions, Throat pain, Hoarseness, Ear Pain, Running Nose, Epistaxis, Sinus Pain, Toothache, Odynophagia Respiratory: DENIES: Apneas, Cough, Snoring, Wheezing, Hemoptysis, Sputum production, Shortness of breath Cardiovascular: DENIES: Chest pain, Palpitations, Syncope, Dyspnea on Exertion , PND, Lower Extremity Edema, Orthopnea, Claudication Gastrointestinal: DENIES: Abdominal pain, Black stools, Bloody stools, Constipation, Diarrhea, Nausea, Vomiting, Difficulty Swallowing, Anorexia Genitourinary: DENIES: Sexual dysfunction, Urinary frequency, Urinary incontinence, Urgency, Hematuria, Dysuria, Nocturia, Penile Discharge, Testicular Pain, Testicular Swelling Musculoskeletal: DENIES: Joint pain, Muscle aches, Stiffness, Joint Swelling, Back pain, Neck pain Integumentary: DENIES: Abnormal pigmentation, Nail changes, Pruritus, Rash Hematologic/lymphatic: DENIES: Bruising, Lymphadenopathy Immunologic/allergic: DENIES: Eczema, Urticaria Neurologic: COMPLAINS OF: Abnormal gait, Poor Balance, DENIES: Headache, Localized weakness, Paresthesias, Seizures, Speech Problems, Tremor Psychiatric: COMPLAINS OF: Anxiety, DENIES: Confusion, Mood changes, Depression , Hallucinations, Agitation, Suicidal Ideation, Homicidal Ideation, Delusions Past Family Social History Allergies: Coded Allergies: No Known Allergies (Unverified Allergy, Unknown, 06/16/17) Past Medical History Congestive heart failure Hypertension End-stage renal disease on dialysis Arthritis/gout Use walker to walk Atrial fibrillation History of C. difficile in 2016 Anemia Secondary hyperparathyroidism Past Surgical History Heart catheterization AV fistula left arm Reported Medications Reported Meds & Active Scripts Active Zyloprim (Allopurinol) 100 Mg Tab 100 Mg PO DAILY Reported Calcium Acetate (Phosphate Binder) 667 Mg Tab 3,200 Mg PO TID Furosemide 40 Mg Tab 40 Mg PO BID Metoprolol Tartrate 100 Mg Tab 100 Mg PO BID Warfarin 3 Mg Tab 3 Mg PO HS Active Ordered Medications Current Medications Medications (Trade) Dose Ordered Sig/Corazon Route PRN Reason Start Time Stop Time Status Last Admin Dose Admin Sodium Chloride 1,000 ml @ 0 mls/hr Q0M PRN OTHER For Prime & Rinse Back 06/16/17 20:37 Heparin Sodium (Porcine) (Heparin Inj) 8,000 units UNSCH PRN IV FLUSH WITH DIALYSIS 06/16/17 20:45 Sodium Chloride 1,000 ml @ 200 mls/hr Q5H PRN IV WITH DIALYSIS 06/16/17 20:37 Sodium Chloride 1,000 ml @ 0 mls/hr Q0M PRN OTHER WITH DIALYSIS 06/16/17 20:37 Mannitol (Mannitol Inj) 12.5 gm UNSCH PRN IV WITH DIALYSIS 06/16/17 20:45 Albumin Human 100 ml @ 60 mls/hr UNSCH PRN IV WITH DIALYSIS 06/16/17 20:45 Sodium Chloride (NS Flush) 5 ml UNSCH PRN IV FLUSH WITH DIALYSIS 06/16/17 20:45 Heparin Sodium (Porcine) (Heparin Inj) UNSCH PRN .XX WITH DIALYSIS 06/16/17 20:45 Gentamicin Sulfate (Gentamicin (Dialysis) Inj) 20 mg UNSCH PRN OTHER WITH DIALYSIS 06/16/17 20:45 Ondansetron HCl (Zofran Inj) 4 mg UNSCH PRN IV PUSH WITH DIALYSIS 06/16/17 20:45 Acetaminophen (Tylenol) 650 mg UNSCH PRN PO for headach, pain, temp > 101F 06/16/17 20:45 Diphenhydramine HCl (Benadryl) 25 mg UNSCH PRN PO for hives/itching/anaphylaxis 06/16/17 20:45 Nitroglycerin (Nitrostat Sl) 0.4 mg UNSCH PRN SL CHEST PAIN 06/16/17 20:45 Clonidine (Catapres) 0.1 mg UNSCH PRN PO for BP > 180/100 X 2 readings 06/16/17 20:45 Gelatin (Gelfoam 12 Mm/7 Mm Top) 1 foam UNSCH PRN TOP SEE LABEL COMMENTS 06/16/17 20:45 Allopurinol (Zyloprim) 100 mg DAILY PO 06/17/17 09:00 Calcium Acetate (Phoslo) 3,335 mg TID PO 06/17/17 09:00 Furosemide (Lasix) 40 mg BID PO 06/17/17 09:00 Metoprolol Tartrate (Lopressor) 100 mg BID PO 06/17/17 09:00 Warfarin Sodium (Coumadin) 3 mg HS PO 06/17/17 21:00 [facility] Pharmacy Profile Note 0 ml @ 0 mls/hr UNSCH OTHER 06/16/17 21:30 Sodium Chloride (NS Flush) 2 ml UNSCH PRN IV FLUSH FLUSH AFTER USING IV ACCESS 06/16/17 21:30 Sodium Chloride (NS Flush) 2 ml BID IV FLUSH 06/17/17 09:00 Acetaminophen (Tylenol) 650 mg Q6H PRN PO PAIN 1-10 AND/OR FEVER >101F 06/16/17 21:30 Famotidine (Pepcid) 20 mg Q12HR PO 06/17/17 09:00 Ondansetron HCl (Zofran Inj) 4 mg Q6H PRN IV PUSH NAUSEA OR VOMITING 06/16/17 21:30 Zolpidem Tartrate (Ambien) 5 mg HS PRN PO INSOMNIA 06/16/17 21:30 Miscellaneous Information 1 Q361D XX 06/16/17 21:30 Chlorhexidine Gluconate (Chlorhexidine 2% Cloth) 3 pack Taper DAILY@04 TOP 06/17/17 04:00 1/4/19 03:59 Chlorhexidine Gluconate (Chlorhexidine 2% Cloth) 3 pack UNSCH PRN TOP HYGIENIC CARE 06/16/17 21:30 Senna/Docusate Sodium (Dulce-Colace) 1 tab BID PO 06/17/17 09:00 Magnesium Hydroxide (Milk Of Magnesia Liq) 30 ml Q12H PRN PO Mild constipation 06/16/17 21:30 Sennosides (Senokot) 17.2 mg Q12H PRN PO Moderate constipation 06/16/17 21:30 Bisacodyl (Dulcolax Supp) 10 mg DAILY PRN RECTAL SEVERE CONSITIPATION 06/16/17 21:30 Lactulose (Lactulose Liq) 30 ml DAILY PRN PO SEVERE CONSITIPATION 06/16/17 21:30 Lidocaine HCl (Xylocaine 1% Inj) FOR MD USE UNSCH X1 OTHER 06/16/17 23:45 06/17/17 03:00 Albuterol Sulfate (Albuterol Neb) 10 mg UNSCH X1 INH 06/17/17 01:15 06/17/17 03:00 06/17/17 01:13 Family History Mother had colorectal cancer, daughter had cervical cancer Social History , lives alone No tobacco or alcohol dependency Physical Exam Vital Signs Vital Signs Date Time Temp Pulse Resp B/P (MAP) Pulse Ox O2 Delivery O2 Flow Rate FiO2 06/16/17 23:00 90 24 117/69 (85) 96 06/16/17 22:00 98.2 94 38 118/69 (85) 96 06/16/17 22:00 94 06/16/17 21:33 92 18 98 06/16/17 21:03 96 18 96 Room Air 06/16/17 20:56 93 18 123/73 (90) 95 Room Air 06/16/17 20:40 96 21 06/16/17 19:28 98.2 88 16 133/78 (96) 96 Room Air 06/16/17 18:14 84 16 97 Room Air 06/16/17 17:42 98.1 95 20 141/75 (97) 94 Physical Exam GENERAL: Chronically ill-appearing very pleasant gentleman in moderate distress SKIN: Dry with skin tenting HEAD: Atraumatic. Normocephalic. EYES: Pupils equal and round. No injection or drainage. ENT: Dry mucous membranes NECK: Trachea midline. CARDIOVASCULAR: Regular rate and rhythm. No murmur appreciated. RESPIRATORY: Clear to auscultation. Breath sounds equal bilaterally. GASTROINTESTINAL: Abdomen soft, non-tender, nondistended. MUSCULOSKELETAL: No obvious deformities. NEUROLOGICAL: Awake and alert. No obvious cranial nerve deficits. Moving all extremities. Laboratory Laboratory Tests Test 06/16/17 19:00 06/16/17 19:15 06/16/17 21:51 Blood Urea Nitrogen 136 Creatinine 17.00 Random Glucose 84 Total Protein 7.9 Albumin 3.4 Calcium Level 6.1 Magnesium Level 3.1 Alkaline Phosphatase 64 Aspartate Amino Transf (AST/SGOT) 10 Alanine Aminotransferase (ALT/SGPT) 12 Total Bilirubin 0.5 Sodium Level 135 Potassium Level 8.2 Chloride Level 97 Carbon Dioxide Level 16.4 Anion Gap 22 Estimat Glomerular Filtration Rate 3 Protein Corrected Calcium 5.8 Total Creatine Kinase 892 Creatine Kinase MB 6.8 Creatine Kinase MB % 0.8 White Blood Count 9.9 Red Blood Count 4.11 Hemoglobin 11.8 Hematocrit 38.0 Mean Corpuscular Volume 92.3 Mean Corpuscular Hemoglobin 28.7 Mean Corpuscular Hemoglobin Concent 31.1 Red Cell Distribution Width 15.0 Platelet Count 169 Mean Platelet Volume 8.0 Neutrophils (%) (Auto) 76.0 Lymphocytes (%) (Auto) 14.8 Monocytes (%) (Auto) 7.9 Eosinophils (%) (Auto) 0.9 Basophils (%) (Auto) 0.4 Neutrophils # (Auto) 7.5 Lymphocytes # (Auto) 1.5 Monocytes # (Auto) 0.8 Eosinophils # (Auto) 0.1 Basophils # (Auto) 0.0 CBC Comment DIFF FINAL Differential Comment Prothrombin Time 32.8 Prothromb Time International Ratio 3.3 Activated Partial Thromboplast Time 59.5 Nasal Screen MRSA (PCR) MRSA NOT DETECTED Result Diagram: 06/16/17191406/16/17 190 Septic Shock Reassessment Septic shock perfusion: reassessment completed Caprini VTE Risk Assessment Caprini VTE Risk Assessment: Mod/High Risk (score >= 2) Caprini Risk Assessment Model Point Value = 1 Point Value = 2 Point Value = 3 Point Value = 5 Age 41-60 Minor surgery BMI > 25 kg/m2 Swollen legs Varicose veins or History of unexplained or recurrent spontaneous Oral contraceptives or hormone replacement Sepsis (< 1 month) Serious lung disease, including pneumonia (< 1 month) Abnormal pulmonary function Acute myocardial infarction Congestive heart failure (< 1 month) History of inflammatory bowel disease Medical patient at bed rest Age 61-74 Arthroscopic surgery Major open surgery (> 45 min) Laparoscopic surgery (> 45 min) Malignancy Confined to bed (> 72 hours) Immobilizing plaster cast Central venous access Age >= 75 History of VTE Family history of VTE Factor V Leiden Prothrombin [id number] Lupus anticoagulant Anticardiolipin antibodies Elevated serum homocysteine Heparin-induced thrombocytopenia Other congenital or acquired thrombophilia Stroke (< 1 month) Elective arthroplasty Hip, pelvis, or leg fracture Acute spinal cord injury (< 1 month) Prophylaxis Regimen Total Risk Factor Score Risk Level Prophylaxis Regimen 0-1 Low Early ambulation 2 Moderate Order ONE of the following: *Sequential Compression Device (SCD) *Heparin 5000 units SQ BID 3-4 Higher Order ONE of the following medications: *Heparin 5000 units SQ TID *Enoxaparin/Lovenox 40 mg SQ daily (WT < 150 kg, CrCl > 30 mL/min) *Enoxaparin/Lovenox 30 mg SQ daily (WT < 150 kg, CrCl > 10-29 mL/min) *Enoxaparin/Lovenox 30 mg SQ BID (WT < 150 kg, CrCl > 30 mL/min) AND/OR *Sequential Compression Device (SCD) 5 or more Highest Order ONE of the following medications: *Heparin 5000 units SQ TID (Preferred with Epidurals) *Enoxaparin/Lovenox 40 mg SQ daily (WT < 150 kg, CrCl > 30 mL/min) *Enoxaparin/Lovenox 30 mg SQ daily (WT < 150 kg, CrCl > 10-29 mL/min) *Enoxaparin/Lovenox 30 mg SQ BID (WT < 150 kg, CrCl > 30 mL/min) AND *Sequential Compression Device (SCD) Assessment and Plan Assessment and Plan Severe Hyperkalemia - Underlying end-stage renal disease - Patient has received insulin sodium bicarbonate, calcium gluconate and albuterol in the emergency department - Emergent hemodialysis - Further management per nephrology Congestive heart failure - No exacerbation - Continue beta roger and diuretics Hypertension - Metoprolol - Lasix - Clonidine when necessary Arthritis/gout - Allopurinol Atrial fibrillation - Rate controlled with metoprolol - Coumadin dosing per pharmacy DVT GI prophylaxis - Teds SCDs - Coumadin - Pepcid Critical Care: The total critical care time was 35 minutes. Time to perform other separately billable procedures was not included in the critical care time. Gustabo Brizuela MD Jun 17, 2017 02:17
--- NOTE | 2017-06-17 02:18 | PD.PROCEDR ---
Procedure Note Procedure Hemodialysis catheter placement A time-out was completed verifying correct patient, procedure, site, positioning , and special equipment if applicable. The patient was placed in a dependent position appropriate for central line placement based on the vein to be cannulated. The patients left neck was prepped and draped in sterile fashion. 1 % Lidocaine was used to anesthetize the surrounding skin area. A double lumen hemodialysis catheter was introduced into the the internal jugular vein using the Seldinger technique and under ultrasound guidance. The catheter was threaded smoothly over the guide wire and appropriate blood return was obtained. Each lumen of the catheter was evacuated of air and flushed with sterile saline. The catheter was then sutured in place to the skin and a sterile dressing applied. Perfusion to the extremity distal to the point of catheter insertion was checked and found to be adequate. Estimated Blood Loss: 1ml The patient tolerated the procedure well and there were no complications. Gustabo Brizuela MD Jun 17, 2017 02:18
[2017-06-17 02:32] LABS: INTERNATIONAL NORMALIZED RATIO 3.1 RATIO; PROTHROMBIN TIME - PATIENT 31.6 SEC (9.8-11.6)
[2017-06-17 02:34] LABS: ALBUMIN 3.1 GM/DL (3.4-5.0); BICARBONATE 16.7 MEQ/L (21.0-32.0); CALCIUM 6.1 MG/DL (8.5-10.1); MAGNESIUM 2.7 MG/DL (1.5-2.5); TOTAL BILIRUBIN ADULT 0.5 MG/DL (0.2-1.0); TOTAL PROTEIN 7.1 GM/DL (6.4-8.2)
[2017-06-17] MEDS: ALBUMIN 25% INJ 100 ML IV PRN (02:39)
[2017-06-17] MEDS: GENTAMICIN SULFATE (DIALYSIS USE ONLY) 20 MG/2 ML VIAL OTHER PRN (02:39)
[2017-06-17] MEDS: HEPARIN SODIUM - IV 10,000 UNITS/10 ML VIAL PRN (02:40)
[2017-06-17 02:55] LABS: CALCIUM-PROTEIN CORRECTED 6.1 MG/DL (8.5-10.1); PHOSPHORUS 12.3 MG/DL (2.5-4.9)
[2017-06-17] MEDS: METOPROLOL TARTRATE 100 MG TAB PO SCH ×2 (05:10→21:58)
[2017-06-17] MEDS ORDERED: PILL SPLITTER OTHER PRN (07:45)
[2017-06-17] MEDS: SODIUM CHLORIDE 0.9% FLUSH 10 ML FLUSH IV FLUSH SCH ×2 (09:00→22:00)
--- NOTE | 2017-06-17 10:19 | HHI.NPPN ---
Subjective History of Present Illness 62 year old male with ESRD, CHF, Hyperkalemia Review of Systems General Constitutional: Fatigue Musculoskeletal MS: Pain/Stiffness Objective Data Data Vital Signs Date Time Temp Pulse Resp B/P (MAP) Pulse Ox O2 Delivery O2 Flow Rate FiO2 06/17/17 06:00 112 23 101/72 (82) 97 06/17/17 06:00 112 06/17/17 05:01 136 24 102/73 (83) 97 06/17/17 04:16 99.1 112 21 111/71 (84) 97 06/17/17 04:00 108 06/17/17 03:01 106 18 85/56 (66) 94 06/17/17 02:01 88 14 97/65 (76) 93 06/17/17 02:00 88 06/17/17 01:01 88 29 113/83 (93) 96 06/17/17 00:01 98.3 94 27 122/82 (95) 94 06/17/17 00:00 92 06/16/17 23:00 90 24 117/69 (85) 96 06/16/17 22:00 98.2 94 38 118/69 (85) 96 06/16/17 22:00 94 06/16/17 21:33 92 18 98 06/16/17 21:03 96 18 96 Room Air 06/16/17 20:56 93 18 123/73 (90) 95 Room Air 06/16/17 20:40 96 21 06/16/17 19:28 98.2 88 16 133/78 (96) 96 Room Air 06/16/17 18:14 84 16 97 Room Air 06/16/17 17:42 98.1 95 20 141/75 (97) 94 -: 06/17/17 0200 06/17/17 0200 Physical Exam General Appearance: Well Developed, Well Nourished Neck Neck Exam: Neck Supple Pulmonary Resp Exam: Clear Bilaterally, Breath Sounds Equal Cardiology CV Exam: Regular, Normal Sinus Rhythm Gastrointestinal/Abdomen GI Exam: Soft, Non-Tender, Bowel Sounds Present Extremeties Extremities Exam: Trace Edema Neurologic Neuro Exam: Alert, Awake Assessment/Plan Problem List: (1) ESRD (end stage renal disease) on dialysis ICD Codes: N18.6 - End stage renal disease; Z99.2 - Dependence on renal dialysis Status: Acute Plan: Patient has AV fistula which is not working attempt was made to do dialysis and it was unsuccessful Vascath placed after difficulty and dialysis done next HD today as has severe uremia and hyperkalemia follows with Dr. Batres Need AVF gram to do angioplasty or other procedures may need to transfer to main high PTH Zemplar 1mcg orally (2) Hyperkalemia ICD Codes: E87.5 - Hyperkalemia Status: Acute Plan: Patient has given treatment as above And now we are attempting to do dialysis after Vas-Cath inserted (3) Congestive heart failure ICD Codes: I50.9 - Heart failure, unspecified Status: Acute Plan: Get fluid off Uri Edgar MD Jun 17, 2017 10:19
[2017-06-17] MEDS: CALCIUM ACETATE 667 MG CAP PO SCH ×3 (10:23→22:00)
[2017-06-17] MEDS: FUROSEMIDE 40 MG TAB PO SCH ×2 (10:24→21:58)
[2017-06-17] MEDS: ALLOPURINOL 100 MG TAB PO SCH (10:24)
[2017-06-17] MEDS: FAMOTIDINE 20 MG TAB PO SCH ×2 (10:24→21:58)
[2017-06-17] MEDS: DOCUSATE SODIUM 50 MG/SENNA 8.6 MG TAB PO SCH ×2 (10:24→21:58)
[2017-06-17 11:24] LABS: BICARBONATE 25.4 MEQ/L (21.0-32.0); CALCIUM 6.5 MG/DL (8.5-10.1)
[2017-06-17 11:42] LABS: TOTAL PROTEIN 6.8 GM/DL (6.4-8.2)
[2017-06-17 11:45] LABS: CALCIUM-PROTEIN CORRECTED 6.7 MG/DL (8.5-10.1)
[2017-06-17] MEDS: PARICALCITOL 1 MCG CAP PO SCH (13:34)
[2017-06-17] MEDS ORDERED: WARFARIN SOD 3 MG TAB PO SCH (16:00)
--- NOTE | 2017-06-17 19:07 | EKG ---
Date Performed: 06/16/2017 Time Performed: 18:24:38 PTAGE: 62 years EKG: Normal sinus whythm with first degree AV block MARKED LEFT AXIS DEVIATION INTRAVENTRICULAR CONDUCTION DELAY NONSPECIFIC ST CHANGES Compared to previous tracing, the patient now has a first deg ree AV block ABNORMAL ECG PREVIOUS TRACING : 03/28/2016 12.49 DOCTOR: Jayashree Felipe Interpretating Date/Time 06/17/2017 19:05:32
--- NOTE | 2017-06-17 19:07 | EKG ---
Date Performed: 06/17/2017 Time Performed: 03:46:50 PTAGE: 62 years EKG: SINUS TACHYCARDIA BORDERLINE LEFT AXIS DEVIATION NONSPECIFIC T-WAVE ABNORMALITY Compared to previous tracing, the intraventricular conduction delay and the first degree AV block have resolved ABNORMAL RHYTHM ECG NO PREVIOUS TRACING DOCTOR: Jayashree Felipe Interpretating Date/Time 06/17/2017 19:06:24
[2017-06-18] VITALS (9 sets, daily range): BP systolic 107–131; BP diastolic 67–79; PULSE 74–108; RESP 18–26; TEMP 97.5–98.9; O2SAT 92–98
[2017-06-18] MEDS: CHLORHEXIDINE GLUCONATE 2 % 1 PACK (2 CLOTHS) TOP SCH (04:00)
[2017-06-18 05:55] LABS: INTERNATIONAL NORMALIZED RATIO 2.1 RATIO; PROTHROMBIN TIME - PATIENT 21.6 SEC (9.8-11.6)
[2017-06-18] MEDS ORDERED: PHYTONADIONE 10 MG/ML VIAL SQ ONE ×2 (08:30→11:30)
--- NOTE | 2017-06-18 08:38 | HHI.PR ---
Subjective Remarks Follow-up elevated INR, end-stage renal disease. The patient is seen in PACU. He was transferred to PACU from [place] in anticipation of interventional radiology procedure to evaluate his AV fistula. The patient has no complaints at this time. Denies chest pain, dyspnea. He did have some "mild stomach upset" earlier this morning. Objective Vitals Vital Signs Date Time Temp Pulse Resp B/P (MAP) Pulse Ox O2 Delivery O2 Flow Rate FiO2 06/18/17 06:15 82 06/18/17 04:56 85 06/18/17 04:56 98.3 74 26 113/67 (82) 92 06/18/17 02:00 76 06/18/17 00:00 82 06/17/17 23:35 98.1 78 16 135/80 (98) 06/17/17 23:00 98.1 76 15 135/80 (98) 95 06/17/17 23:00 79 06/17/17 22:03 99.0 92 36 119/69 (86) 06/17/17 22:00 86 06/17/17 20:28 99.0 95 18 96/64 (75) 96 06/17/17 20:00 94 06/17/17 19:45 95 21 06/17/17 19:42 38 96/64 (75) 93 06/17/17 18:00 99 06/17/17 12:00 106 06/17/17 11:59 98.1 114 40 120/75 (90) 93 06/17/17 10:59 96 28 111/69 (83) 96 06/17/17 10:00 95 06/17/17 09:59 102 25 106/65 (79) 96 06/17/17 08:59 102 33 119/82 (94) 96 I/O 06/17/17 06/17/17 06/17/17 06/18/17 06/18/17 06/18/17 07:00 15:00 23:00 07:00 15:00 23:00 Intake Total 1220 ml Output Total 600 ml 150 ml 200 ml Balance 620 ml -150 ml -200 ml Intake IV Total 1220 ml Output Urine Total 100 ml 150 ml 200 ml Hemodialysis 500 ml # Bowel Movements 1 Result Diagram: 06/17/17 0200 06/17/17 1040 Imaging Last Impressions Chest X-Ray 06/17/17 0000 Signed Impressions: Service Date/Time: Saturday, June 17, 2017 01:43 - CONCLUSION: 1. Cardiomegaly and findings of vascular congestion without overt failure. The findings have worsened when compared with the prior examination. 2. Uncomplicated line placement. No evidence of pneumothorax. Gautam Cantu MD Objective Remarks General: No acute distress. Heart: Regular rate and rhythm. No murmur. Lungs: Clear to auscultation bilaterally. No wheezes, rales, or rhonchi. Breathing is nonlabored. Abdomen: Soft, nontender, nondistended. Extremities: No lower extremity edema. Psych: Alert and oriented. Procedures 06/17/17 Vas-Cath placement Urinary Catheter: No Vascular Central Line Catheter: No A/P Assessment and Plan 1. Generalized weakness: Improving. Likely secondary to renal failure, missed dialysis, electrolyte abnormalities. 2. Severe hyperkalemia: Resolved. Labs are pending today. Patient has received insulin, sodium bicarbonate, calcium gluconate, and albuterol. Appreciate nephrology recommendations. Patient received emergent hemodialysis after Vas- Cath placement. 3. Chronic systolic congestive heart failure: No evidence of exacerbation at this time. Continue beta roger, diuretics. 4. End-stage renal disease: On hemodialysis. Management per nephrology. 5. Hypertension: Continue metoprolol, Lasix. Clonidine as needed. 6. History of gout: Continue allopurinol. 7. Atrial fibrillation: Rate controlled. Continue metoprolol. Coumadin on hold secondary to elevated INR. 8. AV fistula malfunction: Patient is scheduled for interventional radiology evaluation of the fistula. Unable to do the procedure at this time as the INR is elevated. We'll give vitamin K and monitor the INR. 9. DVT prophylaxis: Coumadin, SCDs, CELIO carcamo. 10. GI prophylaxis: Pepcid. Vamshi Pedraza MD Jun 18, 2017 08:38
[2017-06-18] MEDS: DOCUSATE SODIUM 50 MG/SENNA 8.6 MG TAB PO SCH ×2 (09:00→21:00)
[2017-06-18] MEDS: CALCIUM ACETATE 667 MG CAP PO SCH ×3 (09:00→17:50)
[2017-06-18 09:42] LABS: BASOPHIL # 0.1 TH/MM3 (0-0.2); EOSINOPHIL # 0.2 TH/MM3 (0-0.4); EOSINOPHIL % 2.3 % (0.0-4.0); HEMATOCRIT 33.3 % (39.0-51.0); HEMOGLOBIN 11.4 GM/DL (13.0-17.0); LYMPH % 17.8 % (9.0-44.0); LYMPHOCYTE # 1.3 TH/MM3 (1.0-4.8); MEAN CELL VOLUME 92.5 FL (80.0-100.0); MEAN CORPUSCULAR HEMOGLOBIN 31.8 PG (27.0-34.0); MEAN CORPUSCULAR HGB CONC 34.3 % (32.0-36.0); MEAN PLATELET VOLUME 8.7 FL (7.0-11.0); MONO % 12.8 % (0.0-8.0); NEUT % 66.1 % (16.0-70.0); PLATELET COUNT 122 TH/MM3 (150-450); RED CELL DISTRIBUTION WIDTH 15.4 % (11.6-17.2); WHITE BLOOD COUNT 7.5 TH/MM3 (4.0-11.0)
[2017-06-18 10:03] LABS: BICARBONATE 22.3 MEQ/L (21.0-32.0); CALCIUM 7.3 MG/DL (8.5-10.1)
[2017-06-18 10:06] LABS: CREATININE 13.38 MG/DL (0.60-1.30)
[2017-06-18] MEDS: FUROSEMIDE 40 MG TAB PO SCH ×2 (10:26→21:04)
[2017-06-18] MEDS: FAMOTIDINE 20 MG TAB PO SCH ×2 (10:26→21:04)
[2017-06-18] MEDS: METOPROLOL TARTRATE 100 MG TAB PO SCH ×2 (10:26→21:04)
[2017-06-18] MEDS: SODIUM CHLORIDE 0.9% FLUSH 10 ML FLUSH IV FLUSH SCH ×2 (10:30→21:06)
[2017-06-18 10:32] LABS: TOTAL PROTEIN 7.1 GM/DL (6.4-8.2)
[2017-06-18 10:36] LABS: CALCIUM-PROTEIN CORRECTED 7.3 MG/DL (8.5-10.1)
[2017-06-18] MEDS: ALLOPURINOL 100 MG TAB PO SCH (13:00)
[2017-06-18] MEDS: PARICALCITOL 1 MCG CAP PO SCH (13:00)
--- NOTE | 2017-06-18 15:27 | HHI.NPPN ---
Subjective History of Present Illness 62 year old male with ESRD, CHF, Hyperkalemia Review of Systems General Constitutional: Fatigue Musculoskeletal MS: Pain/Stiffness Objective Data Data 06/18/17 06/19/17 19:00 07:00 Intake Total 150 ml Balance 150 ml Blood Product IV Normal Saline Flush 150 ml Vital Signs Date Time Temp Pulse Resp B/P (MAP) Pulse Ox O2 Delivery O2 Flow Rate FiO2 06/18/17 09:59 98.4 85 18 107/71 (83) 98 06/18/17 06:15 82 06/18/17 04:56 85 06/18/17 04:56 98.3 74 26 113/67 (82) 92 06/18/17 02:00 76 06/18/17 00:00 82 06/17/17 23:35 98.1 78 16 135/80 (98) 06/17/17 23:00 98.1 76 15 135/80 (98) 95 06/17/17 23:00 79 06/17/17 22:03 99.0 92 36 119/69 (86) 06/17/17 22:00 86 06/17/17 20:28 99.0 95 18 96/64 (75) 96 06/17/17 20:00 94 06/17/17 19:45 95 21 06/17/17 19:42 38 96/64 (75) 93 06/17/17 18:00 99 -: 06/18/17 0905 06/18/17 0905 Physical Exam General Appearance: Well Developed, Well Nourished Neck Neck Exam: Neck Supple Pulmonary Resp Exam: Clear Bilaterally, Breath Sounds Equal Cardiology CV Exam: Regular, Normal Sinus Rhythm Gastrointestinal/Abdomen GI Exam: Soft, Non-Tender, Bowel Sounds Present Extremeties Extremities Exam: Trace Edema Neurologic Neuro Exam: Alert, Awake Assessment/Plan Problem List: (1) ESRD (end stage renal disease) on dialysis ICD Codes: N18.6 - End stage renal disease; Z99.2 - Dependence on renal dialysis Status: Acute Plan: Patient has AV fistula which is not working attempt was made to do dialysis and it was unsuccessful Vascath placed after difficulty and dialysis done seen at HD [facility] 2 L as tolerated follows with Dr. Batres Need AVF gram to do angioplasty or other procedures high PTH Zemplar 1mcg orally (2) Hyperkalemia ICD Codes: E87.5 - Hyperkalemia Status: Acute Plan: Patient has given treatment as above And now we are attempting to do dialysis after Vas-Cath inserted (3) Congestive heart failure ICD Codes: I50.9 - Heart failure, unspecified Status: Acute Plan: Get fluid off Uri Edgar MD Jun 18, 2017 15:27
[2017-06-18] MEDS: HEPARIN SODIUM - IV 10,000 UNITS/10 ML VIAL PRN (16:11)
[2017-06-18] MEDS: GENTAMICIN SULFATE (DIALYSIS USE ONLY) 20 MG/2 ML VIAL OTHER PRN (16:12)
[2017-06-19] VITALS (16 sets, daily range): BP systolic 95–138; BP diastolic 60–96; PULSE 79–97; RESP 16–20; TEMP 97.4–98.7; O2SAT 92–100
[2017-06-19] MEDS: CHLORHEXIDINE GLUCONATE 2 % 1 PACK (2 CLOTHS) TOP SCH (02:28)
[2017-06-19 07:13] LABS: INTERNATIONAL NORMALIZED RATIO 1.3 RATIO; PROTHROMBIN TIME - PATIENT 12.8 SEC (9.8-11.6)
[2017-06-19 07:42] LABS: BICARBONATE 27.3 MEQ/L (21.0-32.0); CALCIUM 7.4 MG/DL (8.5-10.1); CREATININE 9.71 MG/DL (0.60-1.30)
[2017-06-19 08:03] LABS: TOTAL PROTEIN 7.1 GM/DL (6.4-8.2)
[2017-06-19 08:10] LABS: CALCIUM-PROTEIN CORRECTED 7.4 MG/DL (8.5-10.1)
--- NOTE | 2017-06-19 08:44 | HHI.PR ---
Subjective Remarks Follow-up elevated INR, end-stage renal disease. Patient has no complaints at this time. Denies chest pain, dyspnea. Objective Vitals Vital Signs Date Time Temp Pulse Resp B/P (MAP) Pulse Ox O2 Delivery O2 Flow Rate FiO2 06/19/17 07:20 98.7 86 18 125/77 (93) 96 06/19/17 04:02 97 06/19/17 03:24 98.3 86 20 125/78 (94) 99 06/19/17 00:07 97.4 89 18 123/85 (98) 97 06/19/17 00:00 88 06/18/17 20:18 97.5 84 18 119/73 (88) 96 06/18/17 20:03 98 06/18/17 18:37 108 06/18/17 18:04 98.9 97 18 131/79 (96) 96 06/18/17 09:59 98.4 85 18 107/71 (83) 98 I/O 06/18/17 06/18/17 06/18/17 06/19/17 06/19/17 06/19/17 07:00 15:00 23:00 07:00 15:00 23:00 Intake Total 635 ml 1975 ml Output Total 200 ml 2300 ml 300 ml Balance -200 ml 635 ml -325 ml -300 ml Intake Oral 350 ml FFP 335 ml 195 ml Blood Product IV Normal Saline Flush 300 ml 1430 ml Output Urine Total 200 ml 300 ml 300 ml Hemodialysis 2000 ml Result Diagram: 06/18/17 0905 06/19/17 0609 Imaging Last Impressions Chest X-Ray 06/17/17 0000 Signed Impressions: Service Date/Time: Saturday, June 17, 2017 01:43 - CONCLUSION: 1. Cardiomegaly and findings of vascular congestion without overt failure. The findings have worsened when compared with the prior examination. 2. Uncomplicated line placement. No evidence of pneumothorax. Gautam Cantu MD Objective Remarks General: No acute distress. Heart: Regular rate and rhythm. No murmur. Lungs: Clear to auscultation bilaterally. No wheezes, rales, or rhonchi. Breathing is nonlabored. Abdomen: Soft, nontender, nondistended. Extremities: No lower extremity edema. Psych: Alert and oriented. Procedures 1/8/18 Vas-Cath placement Urinary Catheter: No Vascular Central Line Catheter: No A/P Assessment and Plan 1. Generalized weakness: Improving. Likely secondary to renal failure, missed dialysis, electrolyte abnormalities. 2. Severe hyperkalemia: Resolved. Patient has received insulin, sodium bicarbonate, calcium gluconate, and albuterol. Appreciate nephrology recommendations. Patient received emergent hemodialysis after Vas-Cath placement. 3. Chronic systolic congestive heart failure: No evidence of exacerbation at this time. Continue beta roger, diuretics. 4. End-stage renal disease: On hemodialysis. Management per nephrology. 5. Hypertension: Continue metoprolol, Lasix. Clonidine as needed. 6. History of gout: Continue allopurinol. 7. Atrial fibrillation: Rate controlled. Continue metoprolol. Coumadin on hold in anticipation of IR procedure. 8. AV fistula malfunction: Patient is scheduled for interventional radiology evaluation of the fistula. INR is now 1.3, so patient will likely have the procedure today. 9. DVT prophylaxis: Coumadin, SCDs, CELIO laie. 10. GI prophylaxis: Pepcid. Discharge Planning Plan for discharge home when cleared by nephrology. Vamshi Pedraza MD Jun 19, 2017 08:44
[2017-06-19] MEDS: FAMOTIDINE 20 MG TAB PO SCH ×2 (09:00→21:55)
[2017-06-19] MEDS: DOCUSATE SODIUM 50 MG/SENNA 8.6 MG TAB PO SCH ×2 (09:00→21:00)
[2017-06-19] MEDS: METOPROLOL TARTRATE 100 MG TAB PO SCH ×2 (09:08→21:55)
[2017-06-19] MEDS: FUROSEMIDE 40 MG TAB PO SCH ×2 (09:08→21:55)
[2017-06-19] MEDS: ALLOPURINOL 100 MG TAB PO SCH (09:09)
[2017-06-19] MEDS: SODIUM CHLORIDE 0.9% FLUSH 10 ML FLUSH IV FLUSH SCH ×2 (09:10→21:54)
[2017-06-19] MEDS: CALCIUM ACETATE 667 MG CAP PO SCH ×3 (09:33→17:58)
[2017-06-19] MEDS: PARICALCITOL 1 MCG CAP PO SCH (09:33)
[2017-06-19] MEDS ORDERED: MIDAZOLAM HCL 2 MG/2 ML VIAL ONE ×2 (11:18→11:35)
[2017-06-19] MEDS ORDERED: fentaNYL CITRATE 250 MCG/5 ML AMP ONE (11:18)
[2017-06-19] MEDS ORDERED: IOHEXOL 350 MG/ML 50 ML BTL (for RAD DIAG) IVCONTRAST ONE (13:33)
--- NOTE | 2017-06-19 14:43 | HHI.NPPN ---
Subjective History of Present Illness 62 year old male with ESRD, CHF, Hyperkalemia Review of Systems General Constitutional: Fatigue Musculoskeletal MS: Pain/Stiffness Objective Data Data Vital Signs Date Time Temp Pulse Resp B/P (MAP) Pulse Ox O2 Delivery O2 Flow Rate FiO2 06/19/17 13:45 92 20 101/76 (84) 95 06/19/17 13:30 90 20 106/74 (85) 94 06/19/17 13:15 94 20 138/96 (110) 94 06/19/17 13:00 95 20 95/67 (76) 92 06/19/17 12:45 97.7 92 20 103/60 (74) 92 06/19/17 08:17 79 06/19/17 07:20 98.7 86 18 125/77 (93) 96 06/19/17 04:02 97 06/19/17 03:24 98.3 86 20 125/78 (94) 99 06/19/17 00:07 97.4 89 18 123/85 (98) 97 06/19/17 00:00 88 06/18/17 20:18 97.5 84 18 119/73 (88) 96 06/18/17 20:03 98 06/18/17 18:37 108 06/18/17 18:04 98.9 97 18 131/79 (96) 96 -: 06/18/17 0905 06/19/17 0609 Physical Exam General Appearance: Well Developed, Well Nourished Neck Neck Exam: Neck Supple Pulmonary Resp Exam: Clear Bilaterally, Breath Sounds Equal Cardiology CV Exam: Regular, Normal Sinus Rhythm Gastrointestinal/Abdomen GI Exam: Soft, Non-Tender, Bowel Sounds Present Extremeties Extremities Exam: Trace Edema Neurologic Neuro Exam: Alert, Awake Assessment/Plan Problem List: (1) ESRD (end stage renal disease) on dialysis ICD Codes: N18.6 - End stage renal disease; Z99.2 - Dependence on renal dialysis Status: Acute Plan: Patient has AV fistula which is not working attempt was made to do dialysis and it was unsuccessful Vascath placed after difficulty and dialysis done seen at HD [facility] 2 L as tolerated follows with Dr. Batres Need AVF gram to do angioplasty or other procedures high PTH Zemplar 1mcg orally (2) Hyperkalemia ICD Codes: E87.5 - Hyperkalemia Status: Acute Plan: Patient has given treatment as above And now we are attempting to do dialysis after Vas-Cath inserted (3) Congestive heart failure ICD Codes: I50.9 - Heart failure, unspecified Status: Acute Plan: Get fluid off Uri Edgar MD Jun 19, 2017 14:43
--- NOTE | 2017-06-19 14:53 | PD.RAD ---
Post Procedure Progress Note Pre Procedure Diagnosis: (1) ESRD (end stage renal disease) on dialysis (2) Dialysis AV fistula malfunction Post Procedure Diagnosis: (1) ESRD (end stage renal disease) on dialysis (2) AV fistula stenosis (3) Dialysis AV fistula malfunction Procedure Date: Jun 19, 2017 Supervising Radiologist: Colin Dickens Proceduralist/Assist: Karla López, RT(R)(), Domingo Sloan, RT(R) Anesthesia: Local, Analgesia, Conscious Sedation Plan of Activity Patient to Unit: [facility] Patient Condition: Good See PACS Report for procedural detail/treatment Vascular-Venous Procedure Procedure 1 Procedure Site: Left Arm Procedure(s): Angioplasty (x3), AV Graft/Fistula Evaluation, Venogram Access Access Site(s): Graft/Fistula (left) Findings: Serial inflow and outflow stenosis post RN INTERNATIONAL Colin Dickens MD Jun 19, 2017 14:53
[2017-06-20] VITALS (7 sets, daily range): BP systolic 115–147; BP diastolic 64–88; PULSE 70–86; RESP 16–19; TEMP 97.8; O2SAT 96–100
[2017-06-20] MEDS: CHLORHEXIDINE GLUCONATE 2 % 1 PACK (2 CLOTHS) TOP SCH (03:01)
[2017-06-20 08:02] LABS: INTERNATIONAL NORMALIZED RATIO 1.2 RATIO; PROTHROMBIN TIME - PATIENT 11.7 SEC (9.8-11.6)
--- NOTE | 2017-06-20 08:25 | HHI.PR ---
Subjective Remarks Follow up renal failure, hypocalcemia. Patient has no complaints at this time. Denies chest pain, dyspnea, nausea, vomiting. Wants to go home today. Objective Vitals Vital Signs Date Time Temp Pulse Resp B/P (MAP) Pulse Ox O2 Delivery O2 Flow Rate FiO2 06/20/17 07:46 97.8 84 19 119/78 (92) 96 06/20/17 07:29 85 06/20/17 04:19 97.8 78 16 115/88 (97) 100 06/20/17 04:03 70 06/20/17 00:08 86 06/20/17 00:02 97.8 83 17 147/64 (91) 98 06/19/17 20:38 97.7 80 17 120/75 (90) 100 06/19/17 20:05 95 06/19/17 16:01 84 06/19/17 15:25 97.9 89 16 112/62 (79) 96 06/19/17 14:31 91 06/19/17 13:45 92 20 101/76 (84) 95 06/19/17 13:30 90 20 106/74 (85) 94 06/19/17 13:15 94 20 138/96 (110) 94 06/19/17 13:00 95 20 95/67 (76) 92 06/19/17 12:45 97.7 92 20 103/60 (74) 92 I/O 06/19/17 06/19/17 06/19/17 06/20/17 06/20/17 06/20/17 07:00 15:00 23:00 07:00 15:00 23:00 Output Total 300 ml 100 ml Balance -300 ml -100 ml Output Urine Total 300 ml 100 ml # Voids 1 # Bowel Movements 0 Result Diagram: 06/18/17 0905 06/19/17 0609 Imaging Last Impressions Chest X-Ray 06/17/17 0000 Signed Impressions: Service Date/Time: Saturday, June 17, 2017 01:43 - CONCLUSION: 1. Cardiomegaly and findings of vascular congestion without overt failure. The findings have worsened when compared with the prior examination. 2. Uncomplicated line placement. No evidence of pneumothorax. Gautam Cantu MD Objective Remarks General: No acute distress. Heart: Regular rate and rhythm. No murmur. Lungs: Clear to auscultation bilaterally. No wheezes, rales, or rhonchi. Breathing is nonlabored. Abdomen: Soft, nontender, nondistended. Extremities: No lower extremity edema. Psych: Alert and oriented. Procedures 06/17/17 Vas-Cath placement 06/19/17 Angioplasty x3, AV graft/fistula evaluation, Venogram Urinary Catheter: No Vascular Central Line Catheter: No A/P Assessment and Plan 1. Generalized weakness: Improved. Likely secondary to renal failure, missed dialysis, electrolyte abnormalities. 2. Severe hyperkalemia: Resolved. Patient has received insulin, sodium bicarbonate, calcium gluconate, and albuterol. Appreciate nephrology recommendations. Patient received emergent hemodialysis after Vas-Cath placement. 3. Chronic systolic congestive heart failure: No evidence of exacerbation at this time. Continue beta roger, diuretics. 4. End-stage renal disease: On hemodialysis. Management per nephrology. Due for hemodialysis today. 5. Hypertension: Continue metoprolol, Lasix. Clonidine as needed. 6. History of gout: Continue allopurinol. 7. Atrial fibrillation: Rate controlled. Continue metoprolol. Resume coumadin. 8. AV fistula malfunction: Patient is scheduled for interventional radiology evaluation of the fistula. INR is now 1.3, so patient will likely have the procedure today. 9. DVT prophylaxis: Coumadin, SCDs, CELIO carcamo. 10. GI prophylaxis: Pepcid. 11. Hypocalcemia: Chronic. Improving, but calcium remains low. Continue supplementation. Appreciate nephrology recommendations. Discharge Planning Plan for discharge home when cleared by nephrology. Vamshi Pedraza MD Jun 20, 2017 08:25
[2017-06-20] MEDS: SODIUM CHLORIDE 0.9% FLUSH 10 ML FLUSH IV FLUSH SCH (08:40)
[2017-06-20] MEDS: FUROSEMIDE 40 MG TAB PO SCH (08:41)
[2017-06-20] MEDS: METOPROLOL TARTRATE 100 MG TAB PO SCH (08:41)
[2017-06-20] MEDS: CALCIUM ACETATE 667 MG CAP PO SCH ×2 (08:41→13:39)
[2017-06-20] MEDS: FAMOTIDINE 20 MG TAB PO SCH (08:42)
[2017-06-20] MEDS: ALLOPURINOL 100 MG TAB PO SCH (08:42)
[2017-06-20] MEDS: PARICALCITOL 1 MCG CAP PO SCH (08:42)
[2017-06-20] MEDS: DOCUSATE SODIUM 50 MG/SENNA 8.6 MG TAB PO SCH (08:43)
[2017-06-20] MEDS: ALBUMIN 25% INJ 100 ML IV PRN (09:40)
[2017-06-20] MEDS: GENTAMICIN SULFATE (DIALYSIS USE ONLY) 20 MG/2 ML VIAL OTHER PRN (09:40)
[2017-06-20] MEDS: HEPARIN SODIUM - IV 10,000 UNITS/10 ML VIAL PRN (09:41)
--- NOTE | 2017-06-20 11:36 | HHI.NPPN ---
Subjective History of Present Illness 62 year old male with ESRD, CHF, Hyperkalemia Review of Systems General Constitutional: Fatigue Musculoskeletal MS: Pain/Stiffness Objective Data Data 06/20/17 06/21/17 19:00 07:00 Output Total 2000 ml Balance -2000 ml Hemodialysis 2000 ml Vital Signs Date Time Temp Pulse Resp B/P (MAP) Pulse Ox O2 Delivery O2 Flow Rate FiO2 06/20/17 07:46 97.8 84 19 119/78 (92) 96 06/20/17 07:29 85 06/20/17 04:19 97.8 78 16 115/88 (97) 100 06/20/17 04:03 70 06/20/17 00:08 86 06/20/17 00:02 97.8 83 17 147/64 (91) 98 06/19/17 20:38 97.7 80 17 120/75 (90) 100 06/19/17 20:05 95 06/19/17 16:01 84 06/19/17 15:25 97.9 89 16 112/62 (79) 96 06/19/17 14:31 91 06/19/17 13:45 92 20 101/76 (84) 95 06/19/17 13:30 90 20 106/74 (85) 94 06/19/17 13:15 94 20 138/96 (110) 94 06/19/17 13:00 95 20 95/67 (76) 92 06/19/17 12:45 97.7 92 20 103/60 (74) 92 -: 06/18/17 0905 06/19/17 0609 Physical Exam General Appearance: Well Developed, Well Nourished Neck Neck Exam: Neck Supple Pulmonary Resp Exam: Clear Bilaterally, Breath Sounds Equal Cardiology CV Exam: Regular, Normal Sinus Rhythm Gastrointestinal/Abdomen GI Exam: Soft, Non-Tender, Bowel Sounds Present Extremeties Extremities Exam: Trace Edema Neurologic Neuro Exam: Alert, Awake Assessment/Plan Problem List: (1) ESRD (end stage renal disease) on dialysis ICD Codes: N18.6 - End stage renal disease; Z99.2 - Dependence on renal dialysis Status: Acute Plan: Patient has AV fistula has ggod thrill return with needle OK seen at HD [facility] 2 L as tolerated follows with Dr. Batres high PTH Zemplar 1mcg orally (2) Hyperkalemia ICD Codes: E87.5 - Hyperkalemia Status: Acute Plan: Patient has given treatment as above And now we are attempting to do dialysis after Vas-Cath inserted (3) Congestive heart failure ICD Codes: I50.9 - Heart failure, unspecified Status: Acute Plan: Get fluid off Uri Edgar MD Jun 20, 2017 11:36
[2017-06-20 14:31] LABS: BICARBONATE 31.7 MEQ/L (21.0-32.0); CALCIUM 7.6 MG/DL (8.5-10.1); CREATININE 7.09 MG/DL (0.60-1.30)
--- NOTE | 2017-06-20 14:39 | HHI.DCPOC ---
Discharge Care Plan Diagnosis: (1) Dialysis AV fistula malfunction (2) ESRD (end stage renal disease) on dialysis (3) Congestive heart failure (4) Hyperkalemia (5) Hypocalcemia Goals to Promote Your Health * To prevent worsening of your condition and complications * To maintain your health at the optimal level Directions to Meet Your Goals Take your medications as prescribed Follow your dietary instruction Follow activity as directed Keep your appointments as scheduled Take your immunizations and boosters as scheduled If your symptoms worsen call your PCP, if no PCP go to Urgent Care Center or Emergency Room Smoking is Dangerous to Your Health. Avoid second hand smoke Call the 24-hour hour crisis hotline for domestic abuse at Vamshi Pedraza MD Jun 20, 2017 14:39
--- NOTE | 2017-06-20 14:47 | HHI.DS ---
Discharge Summary Admission Date Jun 16, 2017 at 20:52 Discharge Date: Jun 20, 2017 Admitting Diagnosis hyperkalemia (1) Hyperkalemia ICD Code: E87.5 - Hyperkalemia Status: Acute (2) Congestive heart failure ICD Code: I50.9 - Heart failure, unspecified Status: Acute (3) ESRD (end stage renal disease) on dialysis ICD Code: N18.6 - End stage renal disease; Z99.2 - Dependence on renal dialysis Status: Acute (4) Hypocalcemia ICD Code: E83.51 - Hypocalcemia Status: Acute (5) Atrial fibrillation ICD Code: I48.91 - Unspecified atrial fibrillation (6) Dialysis AV fistula malfunction ICD Code: T82.590A - Other mechanical complication of surgically created arteriovenous fistula, initial encounter Procedures 06/17/17 Vas-Cath placement 06/19/17 Angioplasty x3, AV graft/fistula evaluation, Venogram Brief History - From Admission 62-year-old male who is a dialysis patient presents with generalized weakness, constant, severe, not able to get out of bed today without his son's help. He says that yesterday he was supposed to have dialysis but when he went to his dialysis center they were having problems with tubing and they were unable to dialyze him. They told him to limit his fluids and to come back on Saturday. He was feeling terrible this morning so he came to the emergency department. He follows with Dr. Batres. He is admitted to ICU at [facility]. When dialysis nurse attempted to start HD using his fistula, it was found that his fistula is a dysfunctional. The emergent hemodialysis catheter was placed in the ICU under ultrasound guidance. CBC/BMP: 06/18/17 0905 06/20/17 1358 Significant Findings Laboratory Tests Test 06/18/17 04:27 06/18/17 09:05 06/19/17 06:09 06/20/17 06:05 Prothrombin Time 21.6 SEC (9.8-11.6) 12.8 SEC (9.8-11.6) 11.7 SEC (9.8-11.6) Red Blood Count 3.60 MIL/MM3 (4.50-5.90) Hemoglobin 11.4 GM/DL (13.0-17.0) Hematocrit 33.3 % (39.0-51.0) Platelet Count 122 TH/MM3 (150-450) Monocytes (%) (Auto) 12.8 % (0.0-8.0) Monocytes # (Auto) 1.0 TH/MM3 (0-0.9) Blood Urea Nitrogen 94 MG/DL (7-18) 56 MG/DL (7-18) Creatinine 13.38 MG/DL (0.60-1.30) 9.71 MG/DL (0.60-1.30) Random Glucose 72 MG/DL (74-106) Calcium Level 7.3 MG/DL (8.5-10.1) 7.4 MG/DL (8.5-10.1) Sodium Level 135 MEQ/L (136-145) Potassium Level 5.9 MEQ/L (3.5-5.1) Estimat Glomerular Filtration Rate 4 ML/MIN (>89) 5 ML/MIN (>89) Protein Corrected Calcium 7.3 MG/DL (8.5-10.1) 7.4 MG/DL (8.5-10.1) Test 06/20/17 13:58 Blood Urea Nitrogen 39 MG/DL (7-18) Creatinine 7.09 MG/DL (0.60-1.30) Calcium Level 7.6 MG/DL (8.5-10.1) Potassium Level 5.5 MEQ/L (3.5-5.1) Estimat Glomerular Filtration Rate 8 ML/MIN (>89) Imaging Last Impressions Chest X-Ray 06/17/17 0000 Signed Impressions: Service Date/Time: Saturday, June 17, 2017 01:43 - CONCLUSION: 1. Cardiomegaly and findings of vascular congestion without overt failure. The findings have worsened when compared with the prior examination. 2. Uncomplicated line placement. No evidence of pneumothorax. Gautam Cantu MD PE at Discharge General: No acute distress. Heart: Regular rate and rhythm. No murmur. Lungs: Clear to auscultation bilaterally. No wheezes, rales, or rhonchi. Breathing is nonlabored. Abdomen: Soft, nontender, nondistended. Extremities: No lower extremity edema. Psych: Alert and oriented. Hospital Course Was admitted for management of severe hyperkalemia. He received insulin, sodium bicarbonate, calcium gluconate, albuterol. Potassium improved. Neurology was consulted for emergent hemodialysis. Patient's AV fistula was not functioning properly. Vas-Cath was placed and emergent hemodialysis was done. Interventional radiology was consulted to evaluate the malfunctioning AV fistula. Following interventional radiology angiogram, AV fistula function properly and dialysis was done again. Functioned properly. The patient continued to have hypocalcemia, with improvement throughout the hospitalization. He was cleared for discharge by nephrology. Pt Condition on Discharge: Stable Discharge Disposition: Discharge Home Discharge Time: > 30 minutes Discharge Instructions DIET: Follow Instructions for: Renal Failure Diet Activities you can perform: Regular-No Restrictions Follow up Referrals: Nephrology with Tyesha Batres MD PCP Follow-up - 1 Week with Jesus Alberto Escamilla MD New Orders: PT/INR - 2 Days Continued Medications: Allopurinol (Zyloprim) 100 Mg Tab 100 MG PO DAILY for ., #30 TAB Calcium Acetate (Phosphate Binder) (Calcium Acetate (Phosphate Binder)) 667 Mg Tab 3200 MG PO TID for Hyperphosphatemia, #180 TAB 0 Refills Furosemide (Furosemide) 40 Mg Tab 40 MG PO BID, #60 TAB 0 Refills Metoprolol Tartrate (Metoprolol Tartrate) 100 Mg Tab 100 MG PO BID, #60 TAB 0 Refills Warfarin (Warfarin) 3 Mg Tab 3 MG PO HS for Blood Clot Prevention, TAB 0 Refills Vamshi Pedraza MD Jun 20, 2017 14:47
--- NOTE | 2017-06-20 16:50 | RADRPT ---
EXAM DATE/TIME: 06/19/2017 12:19 [facility] COMPARISON: No previous studies available for comparison. INDICATIONS : Patient with a history of left arm fistula stenosis. MEDICAL HISTORY : Congestive heart failure HTN ESRD Arthritis Gout AFIB Anemia SURGICAL HISTORY : Heart cath AV fistula left arm ENCOUNTER: Initial ACUITY: 2 days PAIN SCORE: 4/10 LOCATION: lower back FLUORO TIME: 6.8 minutes IMAGE SERIES: 14 ACCESS SITE: Left Fistula SEDATION TIME: 60 minutes CONTRAST: 1.) 60 cc Omnipaque (iohexol) 350 MEDICATION(S): 1.) 4 mg midazolam (Versed) IV 2.) 325 mcg fentanyl (Sublimaze) IV DEVICE(S): 1.) Left Fistula 8x40mm and 6x60mm [employer] balloon PROCEDURE : 1. Ultrasound guided puncture of the arterial limb of the fistula. 2. Evaluation of dialysis graft. 3. Upper extremity venogram 4. Superior venacavogram. 5. Conscious sedation with continuous EKG and oximetry monitoring. The risks, benefits and alternatives to the procedure were explained and verbal and written consent w as obtained. The site was prepped in sterile fashion. Full sterile technique was used, including ca p, mask, sterile gloves and gown and a large sterile sheet. Hand hygiene and 2% chlorhexidine and/or betadine/alcohol prep was utilized per protocol for cutaneous antisepsis. Sterile gel and sterile p robe cover were utilized for ultrasound guidance. The skin and subcutaneous tissues were infiltrated with local anesthetic solution. With ultrasound and fluoroscopic guidance the arterial limb of the fistula was punctured directed tow reyes the venous anastomosis. Positive contrast was injected to evaluate the fistula and outflow of th e upper extremity and superior venacava. Sequential stenosis were identified between 2 pseudoaneurysm s, presumably the area of repeat access as well as the immediate outflow. Mild stenosis in the very c entral portion of the cephalic vein. These were all balloon dilated with either 6 or 8 mm balloon ang ioplasty. Contrast injection with occlusion of the outlet retrograde filled the proximal portion of the fistula showing a very diminutive inflow was sequential stenosis. A second access was obtained directed towa rds the arterial anastomosis. With a [address], hockey-stick catheter and Glidewire we re manipulated through the stenosis and into the proximal brachial artery. Contrast injection again d emonstrated high grade stenosis of the origin of the fistula with very little antegrade flow. This ar ea was balloon dilated to 6 mm with marked improvement of the fistula flow. The patient tolerated the procedure well and there were no complications. Conscious sedation was per formed with the prescribed dosages and duration as above in the presence of an independent trained ra diology nurse to assist in the monitoring of the patient. EKG and oximetry remained stable throughou t the procedure. CONCLUSION: 1. Uncomplicated evaluation of the fistula as above. 2. High-grade long segment stenosis of the inflow from the arterial anastomosis to the first access a neurysm. This was successfully balloon dilated to 6 mm with an excellent angiographic result. 3. Serial stenosis in the outflow, the first located between the 2 access aneurysms, a high-grade leeanne nosis in the immediate outflow and a third stenosis in the central portion of the cephalic vein. Thes e were successfully balloon dilated to 8 and 6 mm. 4. Central venous system otherwise remains widely patent. Colin Dickens MD on June 20, 2017 at 16:44 Board Certified Radiologist. This report was verified electronically.
== END 2017-06-20 18:28 | disposition home or self-care (01) | DRG 252 ==
LOC: PHED 17:36 → PHEDA 20:52 → PHICU 21:30 → HPAC 06-18 06:59 → NEPFCDU 06-18 09:39 → N06B 06-19 14:52 → NEPFCDU 06-19 14:54
PROVIDERS: ADMIT Family Medicine; ATTEND Family Medicine
PROC: 5A1D70Z Performance of Urinary Filtration, Intermittent, Less than 6 Hours Per Day (ICD-10-PCS; 2017-06-16)
PROC: 02HV33Z Insertion of Infusion Device into Superior Vena Cava, Percutaneous Approach (ICD-10-PCS; 2017-06-17)
PROC: 30233K1 Transfusion of Nonautologous Frozen Plasma into Peripheral Vein, Percutaneous Approach (ICD-10-PCS; 2017-06-18)
PROC: 03783ZZ Dilation of Left Brachial Artery, Percutaneous Approach (ICD-10-PCS; principal; 2017-06-19)
PROC: 057F3ZZ Dilation of Left Cephalic Vein, Percutaneous Approach (ICD-10-PCS; 2017-06-19)
PROC: B51W1ZZ Fluoroscopy of Dialysis Shunt/Fistula using Low Osmolar Contrast (ICD-10-PCS; 2017-06-19)
PROC: B5181ZZ Fluoroscopy of Superior Vena Cava using Low Osmolar Contrast (ICD-10-PCS; 2017-06-19)
DX: T82.858A Stenosis of other vascular prosthetic devices, implants and grafts, initial encounter (principal); N18.6 End stage renal disease; I13.2 Hypertensive heart and chronic kidney disease with heart failure and with stage 5 chronic kidney disease, or end stage renal disease; N25.81 Secondary hyperparathyroidism of renal origin; I50.22 Chronic systolic (congestive) heart failure; Z99.2 Dependence on renal dialysis; Y83.2 Surgical operation with anastomosis, bypass or graft as the cause of abnormal reaction of the patient, or of later complication, without mention of misadventure at the time of the procedure; E87.5 Hyperkalemia; E78.00 Pure hypercholesterolemia, unspecified; E83.51 Hypocalcemia; I48.91 Unspecified atrial fibrillation; M10.9 Gout, unspecified; M19.90 Unspecified osteoarthritis, unspecified site; E66.01 Morbid (severe) obesity due to excess calories; R79.1 Abnormal coagulation profile; Z87.891 Personal history of nicotine dependence; Z79.01 Long term (current) use of anticoagulants
CPT/HCPCS: 36430; 36902; 71045; 80048; 80053; 82306; 82550; 82552; 83735; 83970; 84100; 84155; 85025; 85610; 85730; 86850; 86900; 86901; 86927; 87641; 90935; 93005; 94640; 94664; 96374; 96375; 99152; 99153; C1725; C1769; C1887; C1894; J0610; J1580; J1644; J1815; J2250; J2405; J3010; J3430; J7030; J7611; J7613; P9017; P9047; Q9967